=== PATIENT | male | born 1955 | race Two or more races ===

== ENCOUNTER 2020-11-22 13:11 | Outpatient (REF) | payer MEDICARE, OTHER, SELFPAY ==
[2020-11-22 15:05] LABS: PSA,Total (Free>4and<10) 0.48 ng/mL (0.00-4.00)
== END 2020-11-22 13:12 | disposition home or self-care (01) ==
LOC: HO.LAB 13:11
PROVIDERS: PCP Internal Medicine
DX: Z12.5 Encounter for screening for malignant neoplasm of prostate (principal); N32.0 Bladder-neck obstruction
CPT/HCPCS: 36415; 84153

== ENCOUNTER → 2020-12-02 13:26 | Outpatient (BNVA) | payer MEDICARE, OTHER, SELFPAY | PROVIDERS: PCP Internal Medicine; Visit Provider Urology | DX: N32.0 Bladder-neck obstruction (principal); N52.01 Erectile dysfunction due to arterial insufficiency; R39.12 Poor urinary stream | CPT/HCPCS: 99212 ==

== ENCOUNTER 2021-04-21 11:41 | Outpatient (REF) | payer MEDICARE, SELFPAY ==
[2021-04-21 13:33] LABS: Binax Internal Control QC Valid; Binax Now Covid-19 Ag Positive (Negative)
== END 2021-04-21 11:42 | disposition home or self-care (01) ==
LOC: HO.LAB 11:41
PROVIDERS: Visit Provider Internal Medicine
DX: Z20.822 Contact with and (suspected) exposure to COVID-19 (principal)
CPT/HCPCS: 36415; C9803

== ENCOUNTER 2022-04-04 14:43 | Outpatient (AMB) | payer OTHER, SELFPAY, MEDICAID ==
--- OUTSIDE RECORDS SUMMARY | 2022-04-04 14:45 | XMS_ITS | Continuity of Care Document ---
:1955 Author Organization [facility] Adult Address [address] [place] [address]- Care Team Providers Name Role Phone [place] MONTANO, Sarah Primary Care Physician Encounter [facility] Date(s): 07/25/21 - 08/24/21 [facility] Adult [address] [place] [address]- Allergies, Adverse Reactions, Alerts No Known Allergies Immunizations Given and Recorded Vaccine Date Status Refusal Reason pneumococcal 23-valent vaccine1, 2 06/20/21 Given SARS-CoV-2 (COVID-19) mRNA BNT-162b2 vac 02/24/21 Recorde d SARS-CoV-2 (COVID-19) mRNA BNT-162b2 vac 07/09/20 Recorde d SARS-CoV-2 (COVID-19) mRNA BNT-162b2 vac 06/18/20 Recorde d influenza virus vaccine, inactivated 01/05/21 Recorded influenza virus vaccine, inactivated 12/18/18 Recorded influenza virus vaccine, inactivated3 02/14/18 Given influenza virus vaccine, inactivated4 01/10/17 Given influenza virus vaccine, inactivated 03/02/16 Given influenza virus vaccine, inactivated 01/18/15 Recorded influenza virus vaccine, inactivated 01/03/15 Given zoster vaccine, inactivated 09/04/20 Recorded zoster vaccine, inactivated 12/08/19 Recorded pneumococcal 13-valent vaccine5 06/01/20 Given Influenza Virus Vaccine (oldterm)6 02/08/20 Recorded tetanus/diphtheria/pertussis, acel(Tdap) 02/09/15 Given 1Early/Late Reason: Early/Late Reason: Other : .2Result Comment: [facility] [place] [phone] Comment: [02/14/2018] [facility] [phone] Comment: [facility] [phone] Comment: [facility] [phone] Result Comment: PHARMACY Medications amLODIPine 10 mg oral tablet 1 tablet, By Mouth, Daily, # 90 tablet, 1 Refills, [id number], 176.2, cm, 04/21/21 10:57:00 EST, Height Start Date: 05/23/21 Status: OrderedCompression Stockings See Instructions, # 2 each, Refills 3, Tot. Refills 3, Maintenance, Dx: Venous Insufficiency surgical, knee length 20-30 mm Hg, 07/15/21 8:26:00 EDT, Supply Start Date: 07/15/21 Status: Orderedfamotidine 20 mg oral tablet 20 mg, 1, tablet, By Mouth, Daily, # 30 tablet, Refills 5, Tot. Refills 5, Maintenance, 01/07/21 9:33:00 EDT, Route to Pharmacy Electronically, [facility]/pharmacy #[id number], Partial fill upon patient request if the prescription is for a schedule II opioid drug.... Start Date: 01/07/21 Status: OrderedFlax Seed Oil oral capsule 0 Refills, Maintenance, 06/20/21 13:40:00 EST, Partial fill upon patient request if the prescriptionis for a schedule II opioid drug. Start Date: 06/20/21 Status: Orderedgarlic oral tablet 0 Refills, Maintenance, 12/17/18 9:14:05 EDT Start Date: 12/17/18 Status: Orderedibuprofen 600 mg oral tablet 600 mg, 1, tablet, By Mouth, Every 6 hours, with food or milk, # 30 tablet, Refills 0, Tot. Refills 0, Maintenance, 04/04/21 17:59:00 EST, Route to Pharmacy Electronically, [facility]/pharmacy #[id number], Partial fill upon patient request if the prescription is f... Start Date: 04/04/21 Status: Orderedtamsulosin 0.4 mg oral capsule 0.4 mg, 1, capsule, By Mouth, Daily, Refills 0, Maintenance, 12/17/18 9:13:40 EDT Start Date: 12/17/18 Status: OrderedVitamin C By Mouth, Daily, 0 Refills, Maintenance, 06/20/21 13:40:00 EST, Partial fill upon patient request ifthe prescription is for a schedule II opioid drug. 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
--- OUTSIDE RECORDS SUMMARY | 2022-04-04 14:45 | XMS_ITS | Continuity of Care Document ---
:1955 Author Organization [facility] Adult Address [address] [place] [address]- Care Team Providers Name Role Phone Maine MONTANO, Sarah Primary Care Physician [phone] Encounter [facility] Date(s): 04/21/21 - 04/28/21 [facility] Adult [address] [place] [address]- Encounter Diagnosis Rhinorrhea (Discharge Diagnosis) - 04/21/21 Sinus congestion (Discharge Diagnosis) - 04/21/21 Attending Physician: Not on Staff, Attending MD Referring Physician: Maine MONTANO, Sarah Allergies, Adverse Reactions, Alerts No Known Allergies Immunizations Given and Recorded Vaccine Date Status Refusal Reason influenza virus vaccine, inactivated 01/05/21 Recorded influenza virus vaccine, inactivated 12/18/18 Recorded influenza virus vaccine, inactivated1 02/14/18 Given influenza virus vaccine, inactivated2 01/10/17 Given influenza virus vaccine, inactivated 03/02/16 Given influenza virus vaccine, inactivated 01/18/15 Recorded influenza virus vaccine, inactivated 01/03/15 Given zoster vaccine, inactivated 09/04/20 Recorded zoster vaccine, inactivated 12/08/19 Recorded SARS-CoV-2 (COVID-19) mRNA BNT-162b2 vac 07/09/20 Recorde d SARS-CoV-2 (COVID-19) mRNA BNT-162b2 vac 06/18/20 Recorde d pneumococcal 13-valent vaccine3 06/01/20 Given Influenza Virus Vaccine (oldterm)4 02/08/20 Recorded tetanus/diphtheria/pertussis, acel(Tdap) 02/09/15 Given 1Result Comment: [02/14/2018] [facility] [phone] Comment: [facility] [phone] Result Comment: [facility] [phone] Comment: PHARMACY Medications amLODIPine 10 mg oral tablet 1 tablet, By Mouth, Daily, # 90 tablet, 1 Refills, Maintenance, 11/28/20 18:57:00 EDT, [facility]/pharmacy #[id number], 176.2, cm, 06/01/20 11:31:00 EST, Height Start Date: 11/28/20 Status: OrderedCompression Stockings See Instructions, # 6 each, Refills 1, Tot. Refills 1, Maintenance, Dx: Venous Insufficiency surgical, knee length 20-30 mm Hg, 03/03/20 15:24:00 EST, Supply Start Date: 03/03/20 Status: Orderedfamotidine 20 mg oral tablet 20 mg, 1, tablet, By Mouth, Daily, # 30 tablet, Refills 5, Tot. Refills 5, Maintenance, 01/07/21 9:33:00 EDT, Route to Pharmacy Electronically, [facility]/pharmacy #[id number], Partial fill upon patient request if the prescription is for a schedule II opioid drug.... Start Date: 01/07/21 Status: Orderedfinasteride 5 mg oral tablet 1 tablet = 5 mg, By Mouth, Daily, # 30 tablet, 0 Refills, Maintenance, 08/22/17 12:06:04 EDT, Tablet Start Date: 08/22/17 Status: OrderedFlonase 50 mcg/inh nasal spray 1 sprays, Nares, Both, 2 times a day, for 14 days, in each nostril, # 16 Gm, 0 Refills, Acute 05/05/21 14:07:00 EST, 04/21/21 14:07:00 EST, [place], [facility]/pharmacy #[id number], Partial fill upon patient request if the prescription is for a schedule II opioid dr... Start Date: 04/21/21 Stop Date: 05/05/21 Status: Orderedgarlic oral tablet 0 Refills, Maintenance, 12/17/18 9:14:05 EDT Start Date: 12/17/18 Status: Orderedibuprofen 600 mg oral tablet 600 mg, 1, tablet, By Mouth, Every 6 hours, with food or milk, # 30 tablet, Refills 0, Tot. Refills 0, Maintenance, 04/04/21 17:59:00 EST, Route to Pharmacy Electronically, [facility]/pharmacy #[id number], Partial fill upon patient request if the prescription is f... Start Date: 04/04/21 Status: Orderedlevocetirizine 5 mg oral tablet 1 tablet = 5 mg, By Mouth, Daily in PM, for 14 days, # 14 tablet, 0 Refills, Acute 05/05/21 14:07:00EST, 04/21/21 14:07:00 EST, Tablet, [facility]/pharmacy #[id number], Partial fill upon patient request if the prescription is for a schedule II opioid drug., 1 tab... 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
--- OUTSIDE RECORDS SUMMARY | 2022-04-04 14:45 | XMS_ITS | Continuity of Care Document ---
:1955 Author Organization [facility] Adult Address [address] [place] [address]- Care Team Providers Name Role Phone Maine MONTANO, Sarah Primary Care Physician [phone] Encounter [facility] Date(s): 05/25/20 - 06/24/20 [facility] Adult [address] [place] [address]- Allergies, Adverse Reactions, Alerts Substance Reaction Severity Status NKA Active Immunizations Given and Recorded Vaccine Date Status Refusal Reason pneumococcal 13-valent vaccine1 06/01/20 Given Influenza Virus Vaccine (oldterm)2 02/08/20 Recorded influenza virus vaccine, inactivated3 02/14/18 Given influenza virus vaccine, inactivated4 01/10/17 Given influenza virus vaccine, inactivated 03/02/16 Given influenza virus vaccine, inactivated 01/03/15 Given tetanus/diphtheria/pertussis, acel(Tdap) 02/09/15 Given 1Result Comment: [facility] [phone] Comment: [id number] Comment: [02/14/2018] [facility] [phone] Comment: [facility] [phone] Medications amLODIPine 10 mg oral tablet 10 mg, 1, tablet, By Mouth, Daily, # 90 tablet, Refills 1, Tot. Refills 1, Maintenance, 05/26/20 15:18:00 EST, Route to Pharmacy Electronically, [facility]/pharmacy #[id number], 176.2, cm, 04/28/20 13:05:00 EST, Height Start Date: 05/26/20 Stop Date: 11/22/20 Status: OrderedCompression Stockings See Instructions, # 6 each, Refills 1, Tot. Refills 1, Maintenance, Dx: Venous Insufficiency surgical, knee length 20-30 mm Hg, 03/03/20 15:24:00 EST, Supply Start Date: 03/03/20 Status: Orderedfamotidine 20 mg oral tablet 20 mg, 1, tablet, By Mouth, Daily, # 30 tablet, Refills 1, Tot. Refills 1, Maintenance, 06/01/20 12:46:00 EST, Route to Pharmacy Electronically, [facility]/pharmacy #[id number], Partial fill upon patient request ifthe prescription is for a schedule II opioid drug... Start Date: 06/01/20 Status: Orderedfinasteride 5 mg oral tablet 1 tablet = 5 mg, By Mouth, Daily, # 30 tablet, 0 Refills, Maintenance, 08/22/17 12:06:04 EDT, Tablet Start Date: 08/22/17 Status: Orderedgarlic oral tablet 0 Refills, Maintenance, 12/17/18 9:14:05 EDT Start Date: 12/17/18 Status: Orderedtamsulosin 0.4 mg oral capsule 0.4 [...]
--- OUTSIDE RECORDS SUMMARY | 2022-04-04 14:45 | XMS_ITS | Continuity of Care Document ---
:1955 Author Organization [facility] Address [address] [place] [address]- Care Team Providers Name Role Phone Maine MONTANO, Sarah Primary Care Physician [phone] Encounter [facility] Date(s): 03/31/19 - 04/10/19 [facility] [address] [place] [address]- [facility] Attending Physician: King Tellez Admitting Physician: AdmKing lugo Referring Physician: AdmtrKing Allergies, Adverse Reactions, Alerts Substance Reaction Severity Status NKA Active Immunizations Given and Recorded Vaccine Date Status Refusal Reason influenza virus vaccine, inactivated1 02/14/18 Given influenza virus vaccine, inactivated2 01/10/17 Given influenza virus vaccine, inactivated 03/02/16 Given influenza virus vaccine, inactivated 01/03/15 Given tetanus/diphtheria/pertussis, acel(Tdap) 02/09/15 Given 1Result Comment: [02/14/2018] [facility] [phone] Comment: [facility] [phone] Medications amLODIPine 10 mg oral tablet 10 mg, 1, tablet, By Mouth, Daily, # 30 tablet, Refills 11, Tot. Refills 11, Maintenance, 01/07/19 17:32:43 EDT, Route to Pharmacy Electronically, [id number], [facility]/pharmacy #[id number] Start Date: 01/07/19 Status: OrderedCompression Stockings See Instructions, # 2 pair, Maintenance, surgical, knee length 20-30 mm Hg, 11/29/18 14:17:47 EDT, Compound Start Date: 11/29/18 Status: Orderedfinasteride 5 mg oral tablet 1 tablet = 5 mg, By Mouth, Daily, # 30 tablet, 0 Refills, Maintenance, 08/22/17 12:06:04 EDT, Tablet Start Date: 08/22/17 Status: OrderedFlax Seed Oil 0 Refills, Maintenance, 12/17/18 9:13:59 EDT Start Date: 12/17/18 Status: Orderedgarlic oral tablet 0 Refills, Maintenance, [...]
--- OUTSIDE RECORDS SUMMARY | 2022-04-04 14:45 | XMS_ITS | Continuity of Care Document ---
:1955 Author Organization [facility] Adult Address [address] [place] [address]- Care Team Providers Name Role Phone Maine MONTANO, Sarah Primary Care Physician [place] [facility] [place] 05/08/19 - 05/18/19 [facility] Adult [address] [place] [address]- [facility] Attending Physician: King Tellez Admitting Physician: King Tellez Referring Physician: AdmtrKing Allergies, Adverse Reactions, Alerts Substance Reaction Severity Status NKA Active Immunizations Given and Recorded Vaccine Date Status Refusal Reason influenza virus vaccine, inactivated1 02/14/18 Given influenza virus vaccine, inactivated2 01/10/17 Given influenza virus vaccine, inactivated 03/02/16 Given influenza virus vaccine, inactivated 01/03/15 Given tetanus/diphtheria/pertussis, acel(Tdap) 02/09/15 Given 1Result Comment: [02/14/2018] [facility] [phone] Comment: [facility] [phone] Medications amLODIPine 10 mg oral tablet 10 mg, 1, tablet, By Mouth, Daily, # 30 tablet, Refills 11, Tot. Refills 11, Maintenance, 01/07/19 17:32:43 EDT, Route to Pharmacy Electronically, [id number], [facility]/pharmacy #[id number] Start Date: 01/07/19 Status: OrderedCompression Stockings [...]
--- OUTSIDE RECORDS SUMMARY | 2022-04-04 14:45 | XMS_ITS | Continuity of Care Document ---
:1955 Author Organization [facility] Adult Address [address] [place] [address]- Care Team Providers Name Role Phone Maine MONTANO, Sarah Primary Care Physician [phone] [id number] Date(s): 12/08/19 - 01/07/20 [facility] Adult [address] [place] [address]- [facility] Allergies, Adverse Reactions, Alerts Substance Reaction Severity Status NKA Active Immunizations Given and Recorded Vaccine Date Status Refusal Reason influenza virus vaccine, inactivated1 02/14/18 Given influenza virus vaccine, inactivated2 01/10/17 Given influenza virus vaccine, inactivated 03/02/16 Given influenza virus vaccine, inactivated 01/03/15 Given tetanus/diphtheria/pertussis, acel(Tdap) 02/09/15 Given 1Result Comment: [02/14/2018] [facility] [phone] Comment: [facility] [phone] Medications amLODIPine 10 mg oral tablet 10 mg, 1, tablet, By Mouth, Daily, # 90 tablet, Refills 0, Tot. Refills 0, Maintenance, 12/08/19 13:51:00 EDT, Route to Pharmacy Electronically, [facility]/pharmacy #[id number], 176.2, cm, 05/08/19 15:49:00 EST, Height, 104.5, kg, 02/20/18 8:57:00 EST, Dry Weight Start Date: 12/08/19 Status: OrderedCompression Stockings See Instructions, # 2 [...]
--- OUTSIDE RECORDS SUMMARY | 2022-04-04 14:45 | XMS_ITS | Continuity of Care Document ---
:1955 Author Organization [facility] Address [address] [place] [address]- Care Team Providers Name Role Phone Maine MONTANO, [place] Primary Care Physician [id number] Date(s): 01/19/21 - 01/26/21 [facility] [address] [place] [address]- Encounter Diagnosis Right eye symptoms (Discharge Diagnosis) - 01/19/21 Attending Physician: Not on Staff, Attending MD Allergies, Adverse Reactions, Alerts Substance Reaction Severity [...] tetanus/diphtheria/pertussis, acel(Tdap) 02/09/15 Given 1Result Comment: [02/14/2018] [facility] [phone] Comment: [facility] [phone] Result Comment: [facility] [phone] Comment: PHARMACY Medications amLODIPine 10 mg oral tablet 1 tablet, By Mouth, Daily, # 90 tablet, 1 Refills, Maintenance, 11/28/20 18:57:00 EDT, [facility]/pharmacy #[id number], 176.2, cm, 06/01/20 11:31:00 EST, Height [...] EDT, Route to Pharmacy Electronically, [facility]/pharmacy #[id number], Partial fill upon patient request if [...] edema(Confirmed) Diagnosis Diagnosis Type Effective Dates Health Status Clinical In formant Service Right eye Discharge 01/19/21 symptoms Diagnosis Vital Signs Most recent to oldest [Reference Range]: 1 Height 176.2 cm (01/19/21 4:01 PM) Weight 108 kg (01/19/21 4:01 PM) Oxygen Saturation [94-100 %] 98 % (01/19/21 4:01 PM) Pulse Rate [55-90 bpm] 80 bpm (01/19/21 4:01 PM) Body Mass Index [18.5-24.99] 34.79 *>HHI* (01/19/21 4:01 PM) Blood Pressure [90-138/55-84 mm Hg] 118/72 mm Hg (01/19/21 4:01 PM) Mode of Delivery (Oxygen) Room air (01/19/21 4:01 PM) Blood pressure sites Arm, left (01/19/21 4:01 PM) Weight Obtained Via Standing scale (01/19/21 4:01 PM) Social History Social History Type Response Smoking Status Former smoker; Other: quit 1 970; entered on: 02/09/15 Sex
--- OUTSIDE RECORDS SUMMARY | 2022-04-04 14:45 | XMS_ITS | Continuity of Care Document ---
:1955 Author Organization [facility] Adult Address [address] [place] [address]- Care Team Providers Name Role Phone Maine MONTANO, [place] Primary Care Physician Encounter [facility] Date(s): 09/29/21 - 10/29/21 [facility] Adult [address] [place] [address]- Allergies, Adverse Reactions, Alerts No Known Allergies [...] Reason: Early/Late Reason: Other : .2Result Comment: [facility] [phone] Comment: [02/14/2018] [facility] [phone] Comment: [facility] [phone] Comment: [facility] [phone] Result Comment: PHARMACY Medications amLODIPine 10 mg oral tablet 1 tablet, By Mouth, Daily, # 90 tablet, 1 Refills, [facility], 176.2, cm, 04/21/21 10:57:00 EST, Height Start [...] 01/07/21 9:33:00 EDT, Route to Pharmacy Electronically, [facility]/pharmacy #[id number], Partial fill upon patient request if the prescription is for a schedule II opioid drug.... Start Date: 01/07/21 Status: Orderedgarlic oral tablet 0 Refills, Maintenance, 12/17/18 9:14:05 EDT Start Date: 12/17/18 Status: Orderedibuprofen 600 mg oral tablet 600 mg, 1, tablet, By Mouth, Every 6 hours, with food or milk, # 30 tablet, Refills 0, Tot. Refills 0, Maintenance, 04/04/21 17:59:00 EST, Route to Pharmacy Electronically, [facility]/pharmacy #[id number], Partial fill upon patient request if [...]
--- OUTSIDE RECORDS SUMMARY | 2022-04-04 14:45 | XMS_ITS | Continuity of Care Document ---
:1955 Author Organization [facility] Adult Address [address] [place] [address]- Care Team Providers Name Role Phone Maine MONTANO, Sarah Primary Care Physician Encounter [facility] Date(s): 06/01/20 - 06/08/20 [facility] [address] [place] [address]- Encounter Diagnosis Well adult exam (Discharge Diagnosis) - 06/01/20 HTN (hypertension) (Discharge Diagnosis) - 06/01/20 Bladder outlet obstruction (Discharge Diagnosis) - 06/01/20 Obesity (Discharge Diagnosis) - 06/01/20 Varicose veins of right leg with edema (Discharge Diagnosis) - 06/01/20 Screening for AAA (aortic abdominal aneurysm) (Discharge Diagnosis) - 06/01/20 Attending Physician: Sarah Grove MD Allergies, Adverse Reactions, Alerts Substance Reaction Severity Status NKA Active Immunizations Given and Recorded Vaccine Date Status Refusal Reason pneumococcal 13-valent vaccine1 06/01/20 Given Influenza Virus Vaccine (oldterm)2 02/08/20 Recorded influenza virus vaccine, inactivated3 02/14/18 Given influenza virus vaccine, inactivated4 01/10/17 Given influenza virus vaccine, inactivated 03/02/16 Given influenza virus vaccine, inactivated 01/03/15 Given tetanus/diphtheria/pertussis, acel(Tdap) 02/09/15 Given 1Result Comment: [facility] [phone] Comment: [id number] Comment: [02/14/2018] [facility] [phone] Comment: [facility] [phone] Medications amLODIPine 10 mg oral tablet 10 mg, 1, tablet, By Mouth, Daily, # 90 tablet, Refills 1, Tot. Refills 1, Maintenance, 05/26/20 15:18:00 EST, Route to Pharmacy Electronically, [facility]/pharmacy #[id number], 176.2, cm, 04/28/20 13:05:00 EST, Height [...] 06/01/20 12:46:00 EST, [id number] Partial fill upon patient request ifthe prescription [...] Dates Health Clinical Infor mant Status Service Well adult exam Discharge 06/01/20 Diagnosis HTN (hypertension) Discharge 06/01/20 Diagnosis Bladder outlet Discharge 06/01/20 obstruction Diagnosis Obesity Discharge 06/01/20 Diagnosis Varicose veins of Discharge 06/01/20 right leg with Diagnosis edema Screening for AAA Discharge 06/01/20 (aortic abdominal Diagnosis aneurysm) Vital Signs Most recent to oldest [Reference Range]: 1 Height 176.2 cm (06/01/20 11:31 AM) Weight 108.4 kg (06/01/20:31 AM) Oxygen Saturation [94-100 %] 99 % (06/01/20:31 AM) Pulse Rate [55-90 bpm] 90 bpm (06/01/20:31 AM) Body Mass Index [18.5-24.99] 34.92 *>HHI* (06/01/20 11:31 AM) Blood Pressure [90-138/55-84 mm Hg] 138/80 mm Hg (06/01/20 11:31 AM) Respiratory Rate [16-30 br/min] 18 br/min (06/01/20 11:31 AM) Blood pressure sites Arm, left (06/01/20:31 AM) Social History Social History Type Response Smoking Status Former smoker; Other: quit 1 970; entered on: 02/09/15 Sex
--- OUTSIDE RECORDS SUMMARY | 2022-04-04 14:45 | XMS_ITS | Continuity of Care Document ---
:1955 Author Organization [facility] Adult Address [address] [place] [address]- Care Team Providers Name Role Phone Maine MONTANO, Sarah Primary Care Physician [phone] Encounter [facility] Date(s): 06/22/21 - 07/22/21 [facility] Adult [address] [place] [address]- Allergies, Adverse Reactions, Alerts No Known Allergies [...] Reason: Early/Late Reason: Other : .2Result Comment: [facility] [phone] Comment: [02/14/2018] [facility] [phone] Comment: [facility] [phone] Comment: [facility] [phone] Result Comment: PHARMACY Medications amLODIPine 10 mg oral tablet 1 tablet, By Mouth, Daily, # 90 tablet, 1 Refills, [id number], 176.2, cm, 04/21/21 10:57:00 EST, Height Start [...] 01/07/21 9:33:00 EDT, Route to Pharmacy Electronically, [facility]/pharmacy #[id number], Partial fill upon patient request if [...] 04/04/21 17:59:00 EST, Route to Pharmacy Electronically, [facility]/pharmacy #[id number], Partial fill upon patient request if [...]
--- OUTSIDE RECORDS SUMMARY | 2022-04-04 14:45 | XMS_ITS | Continuity of Care Document ---
:1955 Author Organization [facility] Address [address] [place] [address]- Care Team Providers Name Role Phone Maine MONTANO, Sarah Primary Care Physician [phone] Encounter [facility] Date(s): 03/31/19 - 04/07/19 [facility] [address] [place] [address] Attending Physician: Kamlesh Black MD Admitting Physician: Kamlesh Black MD Referring Physician: Sarah Grove MD Allergies, Adverse Reactions, Alerts Substance Reaction Severity Status NKA Active Immunizations Given and Recorded Vaccine Date Status Refusal Reason influenza virus vaccine, inactivated1 02/14/18 Given influenza virus vaccine, inactivated2 01/10/17 Given influenza virus vaccine, inactivated 03/02/16 Given influenza virus vaccine, inactivated 01/03/15 Given tetanus/diphtheria/pertussis, acel(Tdap) 02/09/15 Given 1Result Comment: [02/14/2018] [facility] [phone] Comment: [facility] [phone] Medications amLODIPine 10 mg oral tablet 10 mg, 1, tablet, By Mouth, Daily, # 30 tablet, Refills 11, Tot. Refills 11, Maintenance, 01/07/19 17:32:43 EDT, Route to Pharmacy Electronically, [id number], [facility]/pharmacy #[id number] Start Date: 01/07/19 Status: OrderedCompression Stockings [...] veins of right leg with Active edema(Confirmed) Vital Signs Most recent to oldest [Reference Range]: 1 Height 176.2 cm (03/31/19 10:42 AM) Weight 107.00 kg (03/31/19 10:42 AM) Body Mass Index [18.5-24.99] 34.46 *>HHI* (03/31/19 10:42 AM) Blood Pressure [90-138/55-84 mm Hg] 148/80 mm Hg *H* (03/31/19 10:42 AM) Blood pressure sites Arm, left (03/31/19 10:42 AM) Weight Obtained Via Patient/family stated (03/31/19 10:42 AM) Social History Social History Type Response Smoking Status Former smoker; Other: quit 1 970; entered on: 02/09/15 Sex
--- OUTSIDE RECORDS SUMMARY | 2022-04-04 14:45 | XMS_ITS | Continuity of Care Document ---
:1955 Author Organization [facility] Adult Address [address] [place] [address]- Care Team Providers Name Role Phone Maine MONTANO, Sarah Primary Care Physician [phone] Encounter [facility] Date(s): 02/02/21 - 03/04/21 [facility] Adult [address] [place] [address]- Attending Physician: King Tellez Admitting Physician: King [...] tetanus/diphtheria/pertussis, acel(Tdap) 02/09/15 Given 1Result Comment: [02/14/2018] [facility] [phone] Comment: [facility] [phone] Result Comment: [facility] [phone] Comment: PHARMACY Medications amLODIPine 10 mg oral tablet 1 tablet, By Mouth, Daily, # 90 tablet, 1 Refills, Maintenance, 11/28/20 18:57:00 EDT, [facility]/pharmacy #[id number], 176.2, cm, 06/01/20 11:31:00 EST, Height [...] 01/07/21 9:33:00 EDT, Route to Pharmacy Electronically, [facility]/pharmacy #[id number], Partial fill upon patient request if [...]
--- OUTSIDE RECORDS SUMMARY | 2022-04-04 14:45 | XMS_ITS | Continuity of Care Document ---
:1955 Author Organization [facility] Adult Address [address] [place] [address]- Care Team Providers Name Role Phone Maine MONTAON, Sarah Primary Care Physician [id number] Date(s): 02/02/21 - 02/09/21 [facility] Adult [address] [place] [address]- Attending Physician: Familia Wang NP Referring Physician: Not on Staff, Referring MD Allergies, Adverse Reactions, Alerts Substance Reaction [...] tetanus/diphtheria/pertussis, acel(Tdap) 02/09/15 Given 1Result Comment: [02/14/2018] [facility] [phone] Comment: [facility] [phone] Result Comment: [facility] [phone] Comment: PHARMACY Medications amLODIPine 10 mg oral tablet 1 tablet, By Mouth, Daily, # 90 tablet, 1 Refills, Maintenance, 11/28/20 18:57:00 EDT, [facility]/pharmacy #[id number], 176.2, cm, 06/01/20 11:31:00 EST, Height [...] 01/07/21 9:33:00 EDT, Route to Pharmacy Electronically, [facility]/pharmacy #[id number], Partial fill upon patient request if [...] Most recent to oldest [Reference Range]: 1 2 Height 176.2 cm 176.2 cm (02/02/21 10:52 AM) (02/02/21 10:06 AM) Weight 107 kg (02/02/21 10:06 AM) Oxygen Saturation [94-100 %] 100 % (02/02/21 10:06 AM) Pulse Rate [55-90 bpm] 79 bpm (02/02/21 10:06 AM) Body Mass Index [18.5-24.99] 34.46 *>HHI* (02/02/21 10:06 AM) Blood Pressure [90-138/55-84 mm Hg] 132/80 mm Hg 140/ 78 mm Hg (02/02/21 10:52 AM) *H* (02/02/21 10:06 AM) Mode of Delivery (Oxygen) Room air (02/02/21 10:06 AM) Blood pressure sites Arm, left Arm, left (02/02/21 10:52 AM) (02/02/21 10:06 AM) Weight Obtained Via Standing scale (02/02/21 10:06 AM) Social History Social History Type Response Smoking Status Former smoker; Other: quit 1 970; entered on: 02/09/15 Sex
--- OUTSIDE RECORDS SUMMARY | 2022-04-04 14:45 | XMS_ITS | Continuity of Care Document ---
:1955 Author Organization [facility] Adult Address [address] [place] [address]- Care Team Providers Name Role Phone Maine MONTANO, Lamar Primary Care Physician En[place] [facility] Date(s): 10/19/21 - 11/18/21 [facility] Adult [address] [place] [address]- Attending Physician: King Tellez Admitting Physician: King Tellez Referring Physician: AdmtrKing Allergies, Adverse Reactions, Alerts No Known Allergies [...] Reason: Early/Late Reason: Other : .2Result Comment: [facility] [phone] Comment: [02/14/2018] [facility] [phone] Comment: [facility] [phone] Comment: [facility] [phone] Result Comment: PHARMACY Medications amLODIPine 10 mg oral tablet 1 tablet, By Mouth, Daily, # 90 tablet, 1 Refills, [facility], 175, cm, 10/19/21 9:44:00 EDT, Height Start Date: 11/14/21 Status: OrderedCompression Stockings See Instructions, # 2 each, Refills 3, Tot. Refills 3, Maintenance, Dx: Venous Insufficiency surgical, knee length 20-30 mm Hg, 07/15/21 8:26:00 EDT, Supply Start Date: 07/15/21 Status: Orderedfamotidine 20 mg oral tablet 20 mg, 1, tablet, By Mouth, Daily, # 30 tablet, Refills 5, Tot. Refills 5, Maintenance, 01/07/21 9:33:00 EDT, Route to Pharmacy Electronically, [facility]/pharmacy #[id number], Partial fill upon patient [...] 04/04/21 17:59:00 EST, Route to Pharmacy Electronically, [facility]/pharmacy #[id number], Partial fill upon patient [...]
--- OUTSIDE RECORDS SUMMARY | 2022-04-04 14:45 | XMS_ITS | Continuity of Care Document ---
:1955 Author Organization [facility] Address [address] [place] [address]- Care Team Providers Name Role Phone Maine MONTANO, Sarah Primary Care Physician [place] [facility] [place] 03/31/19 - 04/10/19 [facility] [address] [place] [address]- [facility] Attending Physician: Admbrittney, King Admitting Physician: AdmtrKing Referring Physician: Admtr, Ar8 Allergies, Adverse Reactions, Alerts Substance Reaction Severity Status NKA Active Immunizations Given and Recorded Vaccine Date Status Refusal Reason influenza virus vaccine, inactivated1 02/14/18 Given influenza virus vaccine, inactivated2 01/10/17 Given influenza virus vaccine, inactivated 03/02/16 Given influenza virus vaccine, inactivated 01/03/15 Given tetanus/diphtheria/pertussis, acel(Tdap) 02/09/15 Given 1Result Comment: [02/14/2018] [facility] [phone] Comment: [facility] [phone] Medications amLODIPine 10 mg oral tablet 10 mg, 1, tablet, By Mouth, Daily, # 30 tablet, Refills 11, Tot. Refills 11, Maintenance, 01/07/19 17:32:43 EDT, Route to Pharmacy Electronically, [id number], [facility]/pharmacy #[id number] Start Date: 01/07/19 Status: OrderedCompression Stockings [...]
--- OUTSIDE RECORDS SUMMARY | 2022-04-04 14:45 | XMS_ITS | Continuity of Care Document ---
:1955 Author Organization [facility] Adult Address [address] [place] [address]- Care Team Providers Name Role Phone Maine MONTANO, [place] Primary Care Physician En[place] [facility] Date(s): 04/22/21 - 05/22/21 [facility] Adult [address] [place], [place] [address] Allergies, Adverse Reactions, Alerts No Known Allergies [...] tetanus/diphtheria/pertussis, acel(Tdap) 02/09/15 Given 1Result Comment: [02/14/2018] [facility] [phone] Comment: [facility] [phone] Result Comment: [facility] [phone] Comment: PHARMACY Medications amLODIPine 10 mg oral tablet 1 tablet, By Mouth, Daily, # 90 tablet, 1 Refills, Maintenance, 11/28/20 18:57:00 EDT, [id number], 176.2, cm, 06/01/20 11:31:00 EST, Height [...] 01/07/21 9:33:00 EDT, Route to Pharmacy Electronically, [facility]/pharmacy #[id number], Partial fill upon patient request [...] 04/04/21 17:59:00 EST, Route to Pharmacy Electronically, [facility]/pharmacy #[id number], Partial fill upon patient request [...]
--- OUTSIDE RECORDS SUMMARY | 2022-04-04 14:45 | XMS_ITS | Continuity of Care Document ---
:1955 Author Organization [facility] Adult Address [address] [place] [address]- Care Team Providers Name Role Phone Maine MONTANO, Sarah Primary Care Physician En[place] [facility] Date(s): 06/21/21 - 07/21/21 [facility] Adult [address] [place] [address]- Allergies, Adverse Reactions, Alerts No Known Allergies [...] Reason: Early/Late Reason: Other : .2Result Comment: [facility] [phone] Comment: [02/14/2018] [facility] [phone] Comment: [facility] [phone] Comment: [facility] [phone] Result Comment: PHARMACY Medications amLODIPine 10 mg oral tablet 1 tablet, By Mouth, Daily, # 90 tablet, 1 Refills, [facility], 176.2, cm, 04/21/21 10:57:00 EST, Height Start [...] 01/07/21 9:33:00 EDT, Route to Pharmacy Electronically, [facility]/pharmacy #[id number], Partial fill upon patient request if [...] 04/04/21 17:59:00 EST, Route to Pharmacy Electronically, [facility]/pharmacy #[id number], Partial fill upon patient request if [...]
--- OUTSIDE RECORDS SUMMARY | 2022-04-04 14:45 | XMS_ITS | Continuity of Care Document ---
:1955 Author Organization [facility] Adult Address [address] [place] [address]- Care Team Providers Name Role Phone Sarah Grove MD Primary Care Physician [phone] Encounter [facility] Date(s): 06/20/21 - 06/27/[address] [address]- Encounter Diagnosis Well adult exam (Discharge Diagnosis) - 06/20/21 HTN (hypertension) (Discharge Diagnosis) - 06/20/21 Obesity (Discharge Diagnosis) - 06/20/21 Cataract, bilateral (Discharge Diagnosis) - 06/20/21 Prostate cancer screening (Discharge Diagnosis) - 06/20/21 Bladder outlet obstruction (Discharge Diagnosis) - 06/20/21 Attending Physician: Sarah Grove MD Allergies, Adverse Reactions, Alerts No Known Allergies [...] Reason: Early/Late Reason: Other : .2Result Comment: [facility] [phone] Comment: [02/14/2018] [facility] [phone] Comment: [facility] [phone] Comment: [facility] [phone] Result Comment: PHARMACY Medications amLODIPine 10 mg oral tablet 1 tablet, By Mouth, Daily, # 90 tablet, 1 Refills, [facility], 176.2, cm, 04/21/21 10:57:00 EST, Height Start Date: 05/23/21 Status: OrderedCompression Stockings See Instructions, # 6 each, Refills 1, Tot. Refills 1, Maintenance, Dx: Venous Insufficiency surgical, knee length 20-30 mm Hg, 03/03/20 15:24:00 EST, Supply Start Date: 03/03/20 Status: Orderedfamotidine 20 mg oral tablet 20 mg, 1, tablet, By Mouth, Daily, # 30 tablet, Refills 5, Tot. Refills 5, Maintenance, 01/07/21 9:33:00 EDT, Route to Pharmacy Electronically, [facility]/pharmacy #[id number], Partial fill upon [...] 04/04/21 17:59:00 EST, Route to Pharmacy Electronically, [facility]/pharmacy #[id number], Partial fill upon [...] mant Status Service Well adult exam Discharge 06/20/21 Diagnosis HTN (hypertension) Discharge 06/20/21 Diagnosis Obesity Discharge 06/20/21 Diagnosis Cataract, Discharge 06/20/21 bilateral Diagnosis Prostate cancer Discharge 06/20/21 screening Diagnosis Bladder outlet Discharge 06/20/21 obstruction Diagnosis Procedures Procedure Date Related Diagnosis Body Site Status Detachment of retina of right eye Completed Vital Signs Most recent to oldest [Reference Range]: 1 Height 175 cm (06/20/21 1:14 PM) Weight 106.8 kg (06/20/21 1:14 PM) Oxygen Saturation [94-100 %] 99 % (06/20/21 1:14 PM) Pulse Rate [55-90 bpm] 76 bpm (06/20/21 1:14 PM) Body Mass Index [18.5-24.99] 34.87 *>HHI* (06/20/21 1:14 PM) Blood Pressure [90-138/55-84 mm Hg] 134/84 mm Hg (06/20/21 1:14 PM) Temperature [96.8-100.4 DegF] 98.9 DegF (06/20/21 1:14 PM) Mode of Delivery (Oxygen) Room air (06/20/21 1:14 PM) Blood pressure sites Arm, left (06/20/21 1:14 PM) Temperature Route Oral (06/20/21 1:14 PM) Social History Social History Type Response Smoking Status Former smoker; Other: quit 1 970; entered on: 02/09/15 Sex
--- OUTSIDE RECORDS SUMMARY | 2022-04-04 14:45 | XMS_ITS | Continuity of Care Document ---
:1955 Author Organization [facility] Adult Address [address] [place] [address]- Care Team Providers Name Role Phone Maine MONTANO, Sarah Primary Care Physician Encounter [facility] Date(s): 10/19/21 - 10/26/21 [facility] Adult [address] [place] [address]- Encounter Diagnosis Preop examination (Discharge Diagnosis) - 10/19/21 HTN (hypertension) (Discharge Diagnosis) - 10/19/21 Obese class I (Discharge Diagnosis) - 10/19/21 Attending Physician: Suzie MCDONALD, Cassi Vo Referring Physician: Felicia MONTANO, Salvatore Patel Allergies, Adverse Reactions, Alerts No Known Allergies [...] Reason: Early/Late Reason: Other : .2Result Comment: [facility] [phone] Comment: [02/14/2018] [facility] [phone] Comment: [facility] [phone] Comment: [facility] [phone] Result Comment: PHARMACY Medications amLODIPine 10 mg oral tablet 1 tablet, By Mouth, Daily, # 90 tablet, 1 Refills, [facility], 176.2, cm, 04/21/21 10:57:00 EST, Height Start [...] 01/07/21 9:33:00 EDT, Route to Pharmacy Electronically, [facility]/pharmacy #[id number], Partial fill upon patient request if [...] 04/04/21 17:59:00 EST, Route to Pharmacy Electronically, [facility]/pharmacy #[id number], Partial fill upon patient request if [...] Dates Health Clinical Infor mant Status Service Preop examination Discharge 10/19/21 Diagnosis HTN (hypertension) Discharge 10/19/21 Diagnosis Obese class I Discharge 10/19/21 Diagnosis Vital Signs Most recent to oldest [Reference 1 2 3 Range]: Height 175 cm 175 cm 175 cm (10/19/21 9:44 AM) (10/19/21 9:22 AM) (10/19/21 9:11 A M) Weight 106.6 kg (10/19/21 9:11 AM) Oxygen Saturation [94-100 %] 99 % (10/19/21 9:11 AM) Pulse Rate [55-90 bpm] 77 bpm (10/19/21 9:11 AM) Body Mass Index [18.5-24.99] 34.81 *>HHI* (10/19/21 9:11 AM) Blood Pressure [90-138/55-84 mm 144/86 mm Hg 145/78 mm Hg 142/77 mm Hg Hg] *H* *H* *H* (10/19/21 9:44 AM) (10/19/21 9:22 AM) (10/19/21 9:11 A M) Temperature [96.8-100.4 DegF] 97.7 DegF (10/19/21 9:11 AM) Mode of Delivery (Oxygen) Room air (10/19/21 9:11 AM) Blood pressure sites Arm, left Arm, left Arm, left (10/19/21 9:44 AM) (10/19/21 9:22 AM) (10/19/21 9:11 A M) Temperature Route Temporal (10/19/21 9:11 AM) Weight Obtained Via Standing scale (10/19/21 9:11 AM) Social History Social History Type Response Smoking Status Former smoker; Other: quit 1 970; entered on: 02/09/15 Sex
--- OUTSIDE RECORDS SUMMARY | 2022-04-04 14:45 | XMS_ITS | Continuity of Care Document ---
:1955 Author Organization [facility] Address [address] [place] [address]- Care Team Providers Name Role Phone Maine MONTANO, Sarah Primary Care Physician [phone] Encounter [facility] Date(s): 04/04/21 - 04/04/[address] [address]- Encounter Diagnosis Thoracic back sprain (Final) - 04/04/21 Discharge Disposition: A-D/C Home Attending Physician: Michelet Bassett DO Admitting Physician: Michelet Bassett DO Referring Physician: Not on Staff, Referring MD [...] tetanus/diphtheria/pertussis, acel(Tdap) 02/09/15 Given 1Result Comment: [02/14/2018] [facility][note 3] [phone] Comment: [facility][note 3] [phone] Result Comment: [facility][note 3] [phone] Comment: PHARMACY Medications amLODIPine 10 mg oral tablet 1 tablet, By Mouth, Daily, # 90 tablet, 1 Refills, Maintenance, 11/28/20 18:57:00 EDT, [facility]/pharmacy #[id number], 176.2, cm, 06/01/20 11:31:00 [...] 01/07/21 9:33:00 EDT, Route to Pharmacy Electronically, [facility]/pharmacy #[id number], Partial fill upon [...] 04/04/21 17:59:00 EST, Route to Pharmacy Electronically, [facility]/pharmacy #[id number], Partial fill upon [...] edema(Confirmed) Vital Signs Most recent to oldest 1 2 3 [Reference Range]: Oxygen Saturation [94-100 %] 98 % 98 % 98 % (04/04/21 6:32 PM) (04/04/21 4:41 PM) (04/04/21 2:38 PM) Pulse Rate [55-90 bpm] 93 bpm 91 bpm 91 bpm *H* *H* *H* (04/04/21 6:32 PM) (04/04/21 4:41 PM) (04/04/21 2:38 PM) Blood Pressure [90-138/55-84 140/94 mm Hg 132/89 mm Hg 132 /81 mm Hg mm Hg] *H* (04/04/21 4:41 PM) (04/04/21 2:3 8 PM) (04/04/21 6:32 PM) Respiratory Rate [16-30 19 br/min 19 br/min 16 br/mi n br/min] (04/04/21 6:32 PM) (04/04/21 4:41 PM) (04/04/21 2:38 PM) Temperature [96.8-100.4 97.8 DegF 98.9 DegF 99.0 Deg F DegF] (04/04/21 6:32 PM) (04/04/21 4:41 PM) (04/04/21 2:38 PM) Mode of Delivery (Oxygen) Room air Room air Room a ir (04/04/21 6:32 PM) (04/04/21 4:41 PM) (04/04/21 2:38 PM) Blood pressure sites Arm, left Arm, left (04/04/21 4:41 PM) (04/04/21 2:38 PM) Temperature Route Oral Oral Oral (04/04/21 6:32 PM) (04/04/21 4:41 PM) (04/04/21 2:38 PM) Social History Social History Type Response Smoking Status Former smoker; Other: quit 1 970; entered on: 02/09/15 Sex
--- OUTSIDE RECORDS SUMMARY | 2022-04-04 14:45 | XMS_ITS | Continuity of Care Document ---
:1955 Author Organization [facility] Adult Address [address] [place] [address]- Care Team Providers Name Role Phone Maine MONTANO, [place] Primary Care Physician [phone] [place] [facility] [place] 04/21/21 - 05/21/21 [facility] Adult [address] [place] [address]- Attending Physician: King Tellez Admitting Physician: AdmKing lugo Referring Physician: Admtr, Ar8 Allergies, Adverse Reactions, Alerts No Known Allergies [...] tetanus/diphtheria/pertussis, acel(Tdap) 02/09/15 Given 1Result Comment: [02/14/2018] [facility] [phone] Comment: [facility] [phone] Result Comment: [facility] [phone] Comment: PHARMACY Medications amLODIPine 10 mg oral tablet 1 tablet, By Mouth, Daily, # 90 tablet, 1 Refills, Maintenance, 11/28/20 18:57:00 EDT, [facility]/pharmacy #0693, 176.2, cm, 06/01/20 11:31:00 EST, Height [...] 01/07/21 9:33:00 EDT, Route to Pharmacy Electronically, [facility]/pharmacy #[id number], Partial fill upon patient request if [...] 04/04/21 17:59:00 EST, Route to Pharmacy Electronically, [facility]/pharmacy #[id number], Partial fill upon patient request if [...]
--- OUTSIDE RECORDS SUMMARY | 2022-04-04 14:45 | XMS_ITS | Continuity of Care Document ---
:1955 Author Organization [facility] Adult Address [address] [place] [address]- Care Team Providers Name Role Phone Maine MONTANO, [place] Primary Care Physician Encounter [facility] Date(s): 12/07/21 - 01/06/22 [facility] Adult [address] [place] [address]- Allergies, Adverse Reactions, Alerts No Known Allergies [...] Reason: Early/Late Reason: Other : .2Result Comment: [facility] [phone] Comment: [02/14/2018] [facility] [phone] Comment: [facility] [phone] Comment: [facility] [phone] Result Comment: PHARMACY Medications amLODIPine 10 mg oral tablet 1 tablet, By Mouth, Daily, # 90 tablet, 1 Refills, [facility], 175, cm, 10/19/21 9:44:00 EDT, Height Start [...] 01/07/21 9:33:00 EDT, Route to Pharmacy Electronically, [facility]/pharmacy #[id number], Partial fill upon patient request [...] 04/04/21 17:59:00 EST, Route to Pharmacy Electronically, [facility]/pharmacy #[id number], Partial fill upon patient request [...] quit 1 970; entered on: 02/09/15 Sex Care Team PersonnelName: Maine MONTANO, Sarah Address: [address] [place] [address] [address] [place], [place] [address]
--- OUTSIDE RECORDS SUMMARY | 2022-04-04 14:45 | XMS_ITS | Continuity of Care Document ---
:1955 Author Organization [facility] Address [address] [place] [address]- Care Team Providers Name Role Phone Maine MONTANO, Sarah Primary Care Physician [place] [facility] [place] Date(s): 06/08/20 - 07/25/[address] [address] Attending Physician: Sarah Grove MD Admitting Physician: Sarah Grove MD Referring Physician: Sarah Grove MD Allergies, [...] Given tetanus/diphtheria/pertussis, acel(Tdap) 02/09/15 Given 1Result Comment: [facility] [phone] Comment: [id number] Comment: [02/14/2018] [facility] [phone] Comment: [facility] [phone] Medications amLODIPine 10 mg oral tablet 10 mg, 1, tablet, By Mouth, Daily, # 90 tablet, Refills 1, Tot. Refills 1, Maintenance, 05/26/20 15:18:00 EST, Route to Pharmacy Electronically, [facility]/pharmacy #[id number], 176.2, cm, 04/28/20 13:05:00 EST, Height [...] 06/01/20 12:46:00 EST, Route to Pharmacy Electronically, [facility]/pharmacy #[id number], Partial fill upon patient request ifthe prescription [...]
--- OUTSIDE RECORDS SUMMARY | 2022-04-04 14:45 | XMS_ITS | Continuity of Care Document ---
:1955 Author Organization [facility] Adult Address [address] [place] [address]- Care Team Providers Name Role Phone [place] MONTANO, Sarah Primary Care Physician Encounter [facility] [place] Date(s): 07/25/21 - 08/24/21 [facility] Adult [address] [place] [address]- Allergies, Adverse Reactions, Alerts No Known Allergies [...] Reason: Early/Late Reason: Other : .2Result Comment: [facility] [phone] Comment: [02/14/2018] [facility] [phone] Comment: [facility] [phone] Comment: [facility] [phone] Result Comment: PHARMACY Medications amLODIPine 10 mg oral tablet 1 tablet, By Mouth, Daily, # 90 tablet, 1 Refills, [id number], 176.2, cm, 04/21/21 10:57:00 EST, Height Start [...] 01/07/21 9:33:00 EDT, Route to Pharmacy Electronically, [facility]/pharmacy #[id number], Partial fill upon patient request if [...] 04/04/21 17:59:00 EST, Route to Pharmacy Electronically, [facility]/pharmacy #[id number], Partial fill upon patient request if [...]
--- OUTSIDE RECORDS SUMMARY | 2022-04-04 14:45 | XMS_ITS | Continuity of Care Document ---
:1955 Author Organization [facility] Adult Address [address] [place] [address]- Care Team Providers Name Role Phone [place] MONTANO, Sarah Primary Care Physician [place] [facility] [place] 08/24/21 [facility] Adult [address] [place] [address]- Allergies, Adverse Reactions, Alerts No Known Allergies [...] Early/Late Reason: Other : .2Result Comment: [facility] [phone] Comment: [02/14/2018] [facility] [phone] Comment: [facility] [phone] Comment: [facility] [phone] Result Comment: PHARMACY Medications amLODIPine 10 mg oral tablet 1 tablet, By Mouth, Daily, # 90 tablet, 1 Refills, [facility] [id number], 176.2, cm, 04/21/21 10:57:00 EST, Height Start [...] 01/07/21 9:33:00 EDT, Route to Pharmacy Electronically, [facility]/pharmacy #[id number], Partial fill upon patient request if [...] 04/04/21 17:59:00 EST, Route to Pharmacy Electronically, [facility]/pharmacy #[id number], Partial fill upon patient request if [...]
--- OUTSIDE RECORDS SUMMARY | 2022-04-04 14:46 | XMS_ITS | Continuity of Care Document ---
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 (Discharge Diagnosis) - 04/28/20 Prostate cancer screening (Discharge Diagnosis) - 04/28/20 Screening cholesterol level (Discharge Diagnosis) - 04/28/20 Attending Physician: [place] MONTANO, Sarah Allergies, Adverse Reactions, Alerts Substance Reaction Severity Status NKA Active Immunizations Given and Recorded Vaccine Date Status Refusal Reason Influenza Virus Vaccine (oldterm)1 02/08/20 Recorded influenza virus vaccine, inactivated2 02/14/18 Given influenza virus vaccine, inactivated3 01/10/17 Given influenza virus vaccine, inactivated 03/02/16 Given influenza virus vaccine, inactivated 01/03/15 Given tetanus/diphtheria/pertussis, acel(Tdap) 02/09/15 Given 1Result Comment: [id number] Comment: [02/14/2018] [facility] [phone] Comment: [facility] [phone] Medications amLODIPine 10 mg oral tablet 10 mg, 1, tablet, By Mouth, Daily, # 90 tablet, Refills 0, Tot. Refills 0, Maintenance, 02/29/20 14:28:00 EST, Route to Pharmacy Electronically, [facility]/pharmacy #[id number], 176.2, cm, 05/08/19 15:49:00 EST, Height Start Date: 02/29/20 Status: OrderedCompression Stockings See Instructions, # 6 each, Refills 1, Tot. Refills 1, Maintenance, Dx: Venous Insufficiency surgical, knee length 20-30 mm Hg, 03/03/20 15:24:00 EST, Supply Start Date: 03/03/20 Status: Orderedfinasteride 5 mg oral tablet 1 [...] Dates Health Clinical Infor mant Status Service HTN (hypertension) Discharge 04/28/20 Diagnosis Bladder outlet Discharge 04/28/20 obstruction Diagnosis Obesity Discharge 04/28/20 Diagnosis Varicose veins of Discharge 04/28/20 right leg with Diagnosis edema Prostate cancer Discharge 04/28/20 screening Diagnosis Screening Discharge 04/28/20 cholesterol level Diagnosis Vital Signs Most recent to oldest [Reference Range]: 1 2 Height 176.2 cm 176.2 cm (04/28/20 1:05 PM) (04/28/20 11:40 AM) Blood Pressure [90-138/55-84 mm Hg] 119/81 mm Hg (04/28/20 11:40 AM) Social History Social History Type Response Smoking Status Former smoker; Other: quit 1 970; entered on: 02/09/15 Sex
--- OUTSIDE RECORDS SUMMARY | 2022-04-04 14:46 | XMS_ITS | Continuity of Care Document ---
:1955 Author Organization [facility] Adult Address [address] [place] [address]- Care Team Providers Name Role Phone [place] MONTANO, [place] Primary Care Physician Encounter [facility] [place] Date(s): 05/08/19 - 05/15/19 [facility] Adult [address] [place] [address]- [facility] Encounter Diagnosis Bilateral hydrocele (Discharge Diagnosis) - 05/08/19 Attending Physician: Gamaliel MONTANO, [facility] Allergies, Adverse Reactions, Alerts Substance Reaction Severity Status NKA Active Immunizations Given and Recorded Vaccine Date Status Refusal Reason influenza virus vaccine, inactivated1 02/14/18 Given influenza virus vaccine, inactivated2 01/10/17 Given influenza virus vaccine, inactivated 03/02/16 Given influenza virus vaccine, inactivated 01/03/15 Given tetanus/diphtheria/pertussis, acel(Tdap) 02/09/15 Given 1Result Comment: [02/14/2018] [facility] [phone] Comment: [facility] [phone] Medications amLODIPine 10 mg oral tablet 10 mg, 1, tablet, By Mouth, Daily, # 30 tablet, Refills 11, Tot. Refills 11, Maintenance, 01/07/19 17:32:43 EDT, Route to Pharmacy Electronically, [id number], [facility]/pharmacy #[id number] Start Date: 01/07/19 Status: OrderedCompression [...] Dates Health Status Clinical In formant Service Bilateral Discharge 05/08/19 hydrocele Diagnosis Vital Signs Most recent to oldest [Reference Range]: 1 Height 176.2 cm (05/08/19 3:49 PM) Weight 107.2 kg (05/08/19 3:49 PM) Oxygen Saturation [94-100 %] 97 % (05/08/19 3:49 PM) Pulse Rate [55-90 bpm] 65 bpm (05/08/19 3:49 PM) Body Mass Index [18.5-24.99] 34.53 *>HHI* (05/08/19 3:49 PM) Blood Pressure [90-138/55-84 mm Hg] 142/84 mm Hg *H* (05/08/19 3:49 PM) Temperature [96.8-100.4 DegF] 97.9 DegF (05/08/19 3:49 PM) Mode of Delivery (Oxygen) Room air (05/08/19 3:49 PM) Blood pressure sites Arm, left (05/08/19 3:49 PM) Temperature Route Oral (05/08/19 3:49 PM) Weight Obtained Via Standing scale (05/08/19 3:49 PM) Social History Social History Type Response Smoking Status Former smoker; Other: quit 1 970; entered on: 02/09/15 Sex
--- OUTSIDE RECORDS SUMMARY | 2022-04-04 14:46 | XMS_ITS | Continuity of Care Document ---
:1955 Author Organization [facility] Adult Address [address] [place] [address]- Care Team Providers Name Role Phone [place] MONTANO, Sarah Primary Care Physician Encounter [facility] [place] Date(s): 06/22/21 - 07/22/21 [facility] Adult [address] [place] [address]- Allergies, Adverse Reactions, Alerts No Known Allergies [...] Reason: Early/Late Reason: Other : .2Result Comment: [facility] [phone] Comment: [02/14/2018] [facility] [phone] Comment: [facility] [phone] Comment: [facility] [phone] Result Comment: PHARMACY Medications amLODIPine 10 mg oral tablet 1 tablet, By Mouth, Daily, # 90 tablet, 1 Refills, [facility] [id number], 176.2, cm, 04/21/21 10:57:00 EST, Height Start [...] 01/07/21 9:33:00 EDT, Route to Pharmacy Electronically, [facility]/pharmacy #[id number], Partial fill upon patient request if [...] 04/04/21 17:59:00 EST, Route to Pharmacy Electronically, [facility]/pharmacy #[id number], Partial fill upon patient request if [...]
--- OUTSIDE RECORDS SUMMARY | 2022-04-04 14:46 | XMS_ITS | Continuity of Care Document ---
:1955 Author Organization [facility] Adult Address [address] [place] [address]- Care Team Providers Name Role Phone [place] MONTANO, Sarah Primary Care Physician [place] [facility] [place](s): 01/31/21 - 03/02/21 [facility] Adult [address] [place] [address]- Allergies, Adverse Reactions, Alerts Substance Reaction Severity [...] acel(Tdap) 02/09/15 Given 1Result Comment: [02/14/2018] [facility] [phone] Comment: [facility] [phone] Result Comment: [facility] [phone] Comment: PHARMACY Medications amLODIPine 10 mg oral tablet 1 tablet, By Mouth, Daily, # 90 tablet, 1 Refills, Maintenance, 11/28/20 18:57:00 EDT, [facility]/pharmacy #[id number], 176.2, cm, 06/01/20 11:31:00 EST, Height [...] 01/07/21 9:33:00 EDT, Route to Pharmacy Electronically, [facility]/pharmacy #[id number], Partial fill upon patient request if [...]
--- OUTSIDE RECORDS SUMMARY | 2022-04-04 14:46 | XMS_ITS | Continuity of Care Document ---
:1955 Author Organization [facility] Adult Address [address] [place] [address]- Care Team Providers Name Role Phone [place] MONTANO, Sarah Primary Care Physician [place] [facility] [place](s): 06/08/20 - 07/08/20 [facility] Adult [address] [place] [address]- Allergies, Adverse Reactions, Alerts Substance Reaction Severity Status NKA Active Immunizations Given and Recorded Vaccine Date Status Refusal Reason pneumococcal 13-valent vaccine1 06/01/20 Given Influenza Virus Vaccine (oldterm)2 02/08/20 Recorded influenza virus vaccine, inactivated3 02/14/18 Given influenza virus vaccine, inactivated4 01/10/17 Given influenza virus vaccine, inactivated 03/02/16 Given influenza virus vaccine, inactivated 01/03/15 Given tetanus/diphtheria/pertussis, acel(Tdap) 02/09/15 Given 1Result Comment: [facility] [phone] Comment: [id number] Comment: [02/14/2018] [facility] [phone] Comment: [facility] [phone] Medications amLODIPine 10 mg oral tablet 10 mg, 1, tablet, By Mouth, Daily, # 90 tablet, Refills 1, Tot. Refills 1, Maintenance, 05/26/20 15:18:00 EST, Route to Pharmacy Electronically, [facility]/pharmacy #[id number], 176.2, cm, 04/28/20 13:05:00 EST, [...] 06/01/20 12:46:00 EST, Route to Pharmacy Electronically, [facility]/pharmacy #[id number], Partial fill upon patient request ifthe prescription [...]
--- NOTE | 2022-04-04 14:52 | A.OFFVIS_ITS ---
Intake Intake Visit Reasons: 12m with pvr Intake Note: Patient is present for PVR Follow Up Urology Medication: Sildenafil, Tamsulosin Blood Thinner: None Post Void Residual: 8ml Car Builder Required: No Allergies No Known Allergies [No Known Allergies*] Allergy (Unverified 01/01/20 15:24) Medication List - Last Reconciled 04/04/22 by Michele Nova MD sildenafil 100 mg PO DAILY PRN 30 days tamsulosin 0.4 mg PO BEDTIME 90 days HPI HPI Comments History of Present Illness Details Tim MCCOY is a very pleasant male. He is a patient of Dr Matthews. He is seen for the following urologic conditions. - LUTS - erectile dysfunction Continued effective bladder emptying PVR 10 cc Continue good response to on demand sildenafil 12 month follow-up Neurogenic Bladder:? They are here for ?further management for incomplete emptying neurogenic bladder ?- better with medications ?- small stricture on cysto ?- bilateral large hydroceles - offered surgery PSA 12/04 0.5 ? Urinary retention initially found?after ER visit for spontaneous retention - 08/15/17 - prior hx of weak stream, nocturia progressive - trial of finasteride but stopped due to side effects ? Current management?- alpha blockers ? Therapeutic plan?continue medications Erectile dysfunction Responsive to sildenafil PFSH Medical History Bladder outlet obstruction Erectile dysfunction due to arterial insufficiency Weak urinary stream Surgical History H/O shoulder replacement Review of Systems Const Denies chills and Denies fever(s) Card Reports no additional complaints and Denies syncope Resp Denies cough GI Denies abdominal pain and Denies heartburn Reports as per HPI and Denies change in libido Neuro Denies syncope Psych Denies change in libido Endo Denies change in libido Physical Exam Const General: cooperative, healthy appearing, comfortable and no acute distress Orientation/consciousness: patient oriented x3 HEENT Face and sinus: Yes normal facial exam Mouth: moist mucous membranes Neck Neck: Yes normal visual inspection, Yes full ROM and Yes trachea midline Chest Chest palpation & inspection: normal inspection of the chest Resp Effort & Inspection: normal respiratory effort, able to speak in complete sentences and no respiratory distress GI Inspection: Yes normal to inspection Back/Spine/Pelvis Cervical Spine: normal cervical lordosis Thoracic/Lumbar Spine: thoracic and lumbar spine normal to inspection Skin General skin exam: no rashes or lesions noted Neuro General: patient oriented x3, gait normal, tone normal and moves all extremities Extrem General: Yes normal to inspection and Yes capillary refill normal Office Procedures Post Void Residual Post Residual Void Post Void Residual (PVR): 8 [id number] Void Residual by ultrasound Assessment & Plan Assessment & Plan (1) Erectile dysfunction due to arterial insufficiency: Code(s): N52.01 - Erectile dysfunction due to arterial insufficiency (2) Bladder outlet obstruction: Code(s): N32.0 - Bladder-neck obstruction Plan 12 month follow-up Orders: Orders Prostate Specific Antigen 12 Months N32.0 - Bladder-neck obstruction AMB Post Void Residual by ultrasound 04/04/22 R39.12 - Poor urinary stream Patient Instructions: Imaging studies, laboratory and physical exam results were discussed and reviewed in detail. No major barriers to patient understanding were identified. An opportunity to ask questions regarding the treatment plan was provided. All questions were answered. The patient expressed understanding and agreement with the above treatment plan. The patient is aware they should contact our office by phone for worsening of their current condition or the appearance of new urologic symptoms. Compliance is encouraged with any medications and followup testing that is ordered. It is a privilege to participate in the urologic care of your patient. If you have any questions or concerns regarding treatment for the above conditions, or other urologic issues, please do not hesitate to contact me. The office telephone contact is [phone]. This note is constructed using voice recognition software. While every effort has been made to ensure accuracy home manager errors may have been included. Yours sincerely, Dr Michele Nova MD, [facility] - Urology Providers of Expert, Compassionate Care for the Genitourinary System Coding Level of Care Code Est Pt Level 4 (46999) Diagnoses Erectile dysfunction due to arterial insufficiency N52.01 Bladder outlet obstruction N32.0 CPT Codes Post Residual Void - PVR CPT Code: 95447-Ntro Void Residual by ultrasound ([id number])
== END 2022-04-04 15:23 | disposition home or self-care (01) ==
LOC: HO.HUSH 14:43
PROVIDERS: PCP Internal Medicine; Visit Provider Urology
DX: N52.01 Erectile dysfunction due to arterial insufficiency (principal); N32.0 Bladder-neck obstruction
CPT/HCPCS: 99214

== ENCOUNTER → 2022-04-04 14:43 | Outpatient (BNVA) | payer MEDICARE, OTHER, SELFPAY | PROVIDERS: PCP Internal Medicine; Visit Provider Urology | DX: N52.01 Erectile dysfunction due to arterial insufficiency (principal); N32.0 Bladder-neck obstruction | CPT/HCPCS: 51798; 99212 ==

== ENCOUNTER 2023-03-13 13:43 | Emergency (ER) | payer OTHER, SELFPAY ==
--- NOTE | ~2023-03-13 | XR_ITS ---
EXAMINATION: XR RIBS, RIGHT CLINICAL INFORMATION: Right-sided rib pain. COMPARISON: None available. TECHNIQUE: Frontal view of chest 3 views of the right ribs were obtained. FINDINGS: Lungs are clear. No pulmonary vascular congestion. There is no pleural effusion. The heart size is normal. The cardiac and mediastinal contours are normal. There are calcifications of the thoracic aorta. There are multilevel degenerative changes of dorsal spine. Status post reverse right shoulder replacement There is a BB placed over the lower right ribs.. Ribs are intact. No fractures are identified. XR/XR ribs RT min 3V w CXR1V IMPRESSION: 1. No acute abnormality of the chest. 2. No acute osseous abnormality of the right ribs.
--- NOTE | ~2023-03-13 | CT_ITS ---
EXAMINATION: CT HEAD WITHOUT CONTRAST CT CERVICAL SPINE WITHOUT CONTRAST CT FACIAL BONES WITHOUT CONTRAST CLINICAL INFORMATION: Fall. Head strike. COMPARISON: None available. TECHNIQUE: Contiguous axial imaging was performed through the head, facial bones and cervical spine without intravenous administration of contrast. Sagittal and coronal reformatted images also obtained. This CT examination was performed using dose optimization techniques as appropriate, variously including the following: *Automated exposure control *Adjustment of mA and/or kV according to patient size (this includes techniques or standardized protocols for targeted exams where dose is matched to indication/reason for exam; i.e. extremities or head) *Use of iterative reconstruction technique DLP: 1648 mGy-cm FINDINGS: There is mild cerebral volume loss with prominence of the lateral and the third ventricles. The cortical sulci are widened appropriately. The fourth ventricle and basal cisterns are normally outlined. There is minimal bilateral periventricular diminished attenuation. There is no acute territorial defect, hemorrhage or midline shift. Calvarium: Intact. Facial bones: There is right inferior frontal/supraorbital/periorbital/right paranasal soft tissue swelling. There is a mildly displaced fracture right mid nasal bone. There also appears to be a fracture of the inferior nasal spine. No other fracture is seen. There is maxillary sinus mucosal thickening. No suspicious maxillary sinus air-fluid levels are seen. Cervical spine: There is straightening of the expected cervical spine curvature. There is diffuse wrrr-ub-arfxgodk cervical disc degenerative change with loss of disc space, endplate change and posterior osteophytes associated with diffuse mild facet osteoarthritic hypertrophic change with multilevel spinal canal and neuroforaminal narrowing. There is there is no fracture. Soft tissues are unremarkable. The visualized upper lung guerra are clear. CT/CT head/brain wo IV con IMPRESSION: No acute intracranial abnormality. Right inferior frontal/supraorbital/periorbital/right perinasal soft tissue swelling. Mildly displaced right nasal bone fracture and fracture of the inferior nasal spine. Cervical disc degenerative change with straightening of the cervical spine curvature. No evidence for cervical spine fracture.
--- NOTE | ~2023-03-13 | CT_ITS ---
EXAMINATION: CT HEAD WITHOUT CONTRAST CT CERVICAL SPINE WITHOUT CONTRAST CT FACIAL BONES WITHOUT CONTRAST CLINICAL INFORMATION: Fall. Head strike. COMPARISON: None available. TECHNIQUE: Contiguous axial imaging was performed through the head, facial bones and cervical spine without intravenous administration of contrast. Sagittal and coronal reformatted images also obtained. This CT examination was performed using dose optimization techniques as appropriate, variously including the following: *Automated exposure control *Adjustment of mA and/or kV according to patient size (this includes techniques or standardized protocols for targeted exams where dose is matched to indication/reason for exam; i.e. extremities or head) *Use of iterative reconstruction technique DLP: 1648 mGy-cm FINDINGS: There is mild cerebral volume loss with prominence of the lateral and the third ventricles. The cortical sulci are widened appropriately. The fourth ventricle and basal cisterns are normally outlined. There is minimal bilateral periventricular diminished attenuation. There is no acute territorial defect, hemorrhage or midline shift. Calvarium: Intact. Facial bones: There is right inferior frontal/supraorbital/periorbital/right paranasal soft tissue swelling. There is a mildly displaced fracture right mid nasal bone. There also appears to be a fracture of the inferior nasal spine. No other fracture is seen. There is maxillary sinus mucosal thickening. No suspicious maxillary sinus air-fluid levels are seen. Cervical spine: There is straightening of the expected cervical spine curvature. There is diffuse ermr-vs-xqpadjmw cervical disc degenerative change with loss of disc space, endplate change and posterior osteophytes associated with diffuse mild facet osteoarthritic hypertrophic change with multilevel spinal canal and neuroforaminal narrowing. There is there is no fracture. Soft tissues are unremarkable. The visualized upper lung guerra are clear. CT/CT cervical spine wo IV con IMPRESSION: No acute intracranial abnormality. Right inferior frontal/supraorbital/periorbital/right perinasal soft tissue swelling. Mildly displaced right nasal bone fracture and fracture of the inferior nasal spine. Cervical disc degenerative change with straightening of the cervical spine curvature. No evidence for cervical spine fracture.
--- NOTE | ~2023-03-13 | CT_ITS ---
EXAMINATION: CT HEAD WITHOUT CONTRAST CT CERVICAL SPINE WITHOUT CONTRAST CT FACIAL BONES WITHOUT CONTRAST CLINICAL INFORMATION: Fall. Head strike. COMPARISON: None available. TECHNIQUE: Contiguous axial imaging was performed through the head, facial bones and cervical spine without intravenous administration of contrast. Sagittal and coronal reformatted images also obtained. This CT examination was performed using dose optimization techniques as appropriate, variously including the following: *Automated exposure control *Adjustment of mA and/or kV according to patient size (this includes techniques or standardized protocols for targeted exams where dose is matched to indication/reason for exam; i.e. extremities or head) *Use of iterative reconstruction technique DLP: 1648 mGy-cm FINDINGS: There is mild cerebral volume loss with prominence of the lateral and the third ventricles. The cortical sulci are widened appropriately. The fourth ventricle and basal cisterns are normally outlined. There is minimal bilateral periventricular diminished attenuation. There is no acute territorial defect, hemorrhage or midline shift. Calvarium: Intact. Facial bones: There is right inferior frontal/supraorbital/periorbital/right paranasal soft tissue swelling. There is a mildly displaced fracture right mid nasal bone. There also appears to be a fracture of the inferior nasal spine. No other fracture is seen. There is maxillary sinus mucosal thickening. No suspicious maxillary sinus air-fluid levels are seen. Cervical spine: There is straightening of the expected cervical spine curvature. There is diffuse nvbq-bm-onuwqksj cervical disc degenerative change with loss of disc space, endplate change and posterior osteophytes associated with diffuse mild facet osteoarthritic hypertrophic change with multilevel spinal canal and neuroforaminal narrowing. There is there is no fracture. Soft tissues are unremarkable. The visualized upper lung guerra are clear. CT/CT facial bones wo IV con IMPRESSION: No acute intracranial abnormality. Right inferior frontal/supraorbital/periorbital/right perinasal soft tissue swelling. Mildly displaced right nasal bone fracture and fracture of the inferior nasal spine. Cervical disc degenerative change with straightening of the cervical spine curvature. No evidence for cervical spine fracture.
[2023-03-13 14:05] VITALS: BP 133/79; PULSE 90; RESP 18; TEMP 36.4; O2SAT 98; BMI 32.0
--- NOTE | 2023-03-13 14:06 | ED.GENADULT ---
HPI - General Adult General Chief complaint: Fall Stated complaint: R Si8de Face & Rib Pain S/P Fall 03/13/23 Time Seen by Provider: 03/13/23 16:05 Source: patient Mode of arrival: ambulatory Limitations: no limitations History of Present Illness HPI narrative: Patient is a 67-year-old male presenting to the emergency department with complaint of right eye pain, swelling, and ecchymosis, as well as right rib pain after a slip and fall prior to arrival. Reports that he was cleaning at home and slipped, denies any dizziness or lightheadedness prior to fall. States that he hit his face on a metal pole as he was falling. Denies loss of consciousness. Denies dizziness, lightheadedness. Denies any vision changes. Denies headache. He is not anticoagulated. States that his nose was bleeding immediately after the fall which has since resolved. States that he felt ok after the fall but came to the ED when he looked in the mirror and saw the bruising to his eye. Reports history of cataract surgery, states he normally wears glasses but does not have them with him. MD complaint: head injury Onset (ago): hour(s) Location: head, face and chest Severity: mild Quality: aching Pain Consistency: constant Relieving factors: none Exacerbating factors: none Associated symptoms: denies other symptoms Treatments prior to arrival: none Related Data Previous Rx's Medication Instructions Recorded sildenafil 100 mg tablet 100 mg PO DAILY PRN sexual 12/02/20 activity 30 days #30 tabs tamsulosin 0.4 mg capsule 0.4 mg PO BEDTIME 90 days #90 caps 04/04/22 Allergies Allergy/AdvReac Type Severity Reaction Status Date / Time No Known Allergies Allergy Verified 03/13/23 14:09 [No Known Allergies*] Review of Systems Review of Systems: As per HPI Yes all other systems are reviewed and are negative Constitutional: Constitutional: Reports as per HPI [facility] Past Medical History Medical History Bladder outlet obstruction Erectile dysfunction due to arterial insufficiency Weak urinary stream Surgical History H/O shoulder replacement Social History Social History Advance Directives: No Advance Directives Information Provided: Yes Physical Exam ED Vital Signs: Vital Signs - 24 hr 03/13/23 14:05 Temperature 97.5 F Pulse Rate 90 Respiratory Rate 18 Blood Pressure 133/79 Pulse Oximetry 98 Oxygen Delivery Method Room Air BMI result Body Mass Index 32.0 Vital signs have been reviewed and appear to be correct. Blood pressure normal. Heart rate normal. Respiratory rate normal. Temperature normal. Oxygen saturation normal. Const General: cooperative, healthy appearing and no acute distress Orientation/consciousness: oriented to person, oriented to place, oriented to time and patient oriented x3 Limitations: no limitations HENMT Head: Yes No palpable skull fracture present and Yes normocephalic Head images: 1. ecchymosis to right upper eyelid and lateral eye Ears: hearing grossly normal bilaterally, external ears normal, TM's normal bilaterally and EAC's normal General nose exam: Normal nares present, Normal nasal mucous membranes and turbinates present, Normal septum present, No nasal discharge present and Abnormal external nose present nasal tenderness and nasal swelling; no nasal lacerations Face and sinus: Yes face symmetric, No maxillary instability and Yes sinus tenderness (right ethmoid) Mouth: Normal oral and palatal mucosa present, lip normal, tongue normal, oropharynx normal and moist mucous membranes Teeth and gingiva: dentition normal Throat: Yes uvula midline Eyes Eyelids: Yes eyelid abnormality (Right upper eyelid ecchymosis) Conjunctivae: conjunctivae normal Sclerae: sclerae normal Pupils: Equal, round and reactive pupils present EOM: EOMs intact bilaterally Neck Neck: Yes normal visual inspection, Yes full ROM, Yes trachea midline and Yes supple Chest Chest palpation & inspection: normal inspection of the chest and tenderness rib right mid-axillary line involving the 9th rib and involving the 10th rib Resp Effort & Inspection: normal respiratory effort and able to speak in complete sentences Auscultation: clear to auscultation bilaterally Cardio Rate: regular rate Rhythm: regular rhythm Heart sounds: S1 normal heart sound present and S2 normal heart sound present GI Inspection: Yes normal to inspection and No abdominal wall ecchymosis Palpation (GI): Soft to palpation and nontender Auscultation: normoactive bowel sounds General: Yes no CVA tenderness Back/Spine/Pelvis Back: no CVA tenderness Cervical Spine: normal cervical lordosis, cervical ROM normal, No Cervical spine tenderness and No step off deformity Thoracic/Lumbar Spine: thoracic and lumbar spine normal to inspection, thoraco-lumbar ROM normal, No thoracic spinal tenderness and No lumbar spinal tenderness Skin General skin exam: elasticity normal and turgor normal Neuro General: oriented to person, oriented to place, oriented to time, patient oriented x3, moves all extremities, no focal motor deficits and CN's II-XI intact bilaterally Cranial nerves: Yes Equal, round and reactive pupils present Cognition (Neuro): normal cognition Extrem General: Yes full ROM, Yes no pedal edema and Yes no calf tenderness Psych Mental Status: mental status grossly normal Affect: normal affect Thought process: Normal thought process present Course Course Course Narrative: This is an RME: Additional HPI, ROS, PE not included below will be deferred to primary provider. 67 yo f hx of [facility], ED presents s/p slip nikos fall hit his face on the corner of something now presenting w/ r sided facial pain, headache. No LOC not on thinners PE evident trauma to r side of face and nose ? fx Imaging ordered Medical Decision Making Medical Decision Making [facility] Narrative: Patient is a 67-year-old male presenting to the emergency department with complaint of right eye pain, swelling, and ecchymosis, as well as right rib pain after a slip and fall prior to arrival. On exam patient is awake, A+Ox3, VS WNL, afebrile, normal neurological exam without focal deficits, physical exam findings as above. Given reported symptoms and physical exam findings, initial differential includes orbital fracture, orbital contusion, nasal fracture, nasal contusion, skull fracture, ICH, cervical fracture, rib fracture, pneumothorax. Labs notable for mild leukocytosis, likely related to trauma, no significant electrolyte abnormalities. X-ray notable for no acute rib fractures. CT shows no skull fracture, no ICH, no cervical fracture. CT face shows mildly displaced right nasal fracture and nasal spine fracture. My interpretation is in agreement with the radiologist's interpretation. Results discussed with patient all questions answered. Will refer to ENT for further evaluation and management of nasal fractures. Strict return precautions discussed at bedside with patient. Advised alternating Tylenol and ibuprofen as needed for pain, applying ice intermittently. Patient verbalized understanding of and agreement with plan. Differential Diagnosis Differential Diagnoses: The differential diagnosis associated with the presentation includes As per [facility]. Admission/Observation Consideration of admission/observation: Escalation of care including admission/observation considered Lab Data [facility] Lab Attestation statement: I reviewed the patient's lab results. As per MDM. 03/13/23 16:15 03/13/23 16:15 Labs: Lab Results 03/13/23 Range/Units 16:15 WBC 15.5 H (4.8-10.8) X10*3/uL RBC 5.38 (4.60-5.80) X10*6/uL Hgb 14.9 (14.0-18.0) g/dl Hct 47.0 (42.0-52.0) % MCV 87.4 (80.0-98.0) fL MCH 27.7 (27.0-33.0) pg MCHC 31.7 (31.0-36.0) g/dl RDW 14.5 (11.0-16.0) % Plt Count 263 (160-400) X10*3/uL MPV 9.8 (9.4-12.4) fL Immature Gran % (Auto) 0.5 H (0.0-0.4) % Neut % (Auto) 88.0 H (45-73) % Lymph % (Auto) 7.0 L (20-40) % Moffat % (Auto) 4.3 (2-11) % Eos % (Auto) 0.1 (0-4) % Baso % (Auto) 0.1 (0-2) % Lymph # (Auto) 1.1 L (1.2-4.9) X10*3/uL Moffat # (Auto) 0.7 (0.1-1.2) X10*3/uL Eos # (Auto) 0.0 (0.0-0.4) X10*3/uL Baso # (Auto) 0.0 (0.0-0.2) X10*3/uL Abs Immat Gran (auto) 0.07 H (0.00-0.03) X10*3/uL Absolute Neuts (auto) 13.7 H (2.0-8.3) x10*3/uL Absolute Nucleated RBC 0.000 (0.0-0.012) X10*3/uL Nucleated RBC % (auto) 0.0 (0.0-0.2) /100WBC PT 12.6 (11.1-13.3) SEC INR 1.0 (0.9-1.1) Sodium 141 (135-145) mmol/L Potassium 4.8 (3.3-5.1) mmol/L Chloride 108 (96-108) mmol/L Carbon Dioxide 28 (22-29) mmol/L Anion Gap 10 L (12-20) BUN 18 H (9-16) mg/dL Creatinine 1.01 (0.5-1.4) mg/dL Estim Creat Clear Calc 86.0 Estimated GFR > 60 Random Glucose 123 H (60-115) mg/dL Calcium 9.9 (8.4-10.2) mg/dL Total Bilirubin 0.4 (0.0-1.0) mg/dL AST 30 (5-37) U/L ALT 26 (0-40) U/L Alkaline Phosphatase 93 (39-117) U/L Total Protein 8.2 H (6.5-8.0) g/dL Albumin 4.5 (3.5-5.0) g/dL Independent Interpretation I performed an independent interpretation of an: Plain X-Ray and CT Scan Interpretation: No acute rib fractures on rib x-ray, no evidence of pneumothorax No skull fracture or ICH on CT head, no cervical fracture Mildly displaced right nasal bone fracture and fracture of inferior nasal spine Radiology Impression Discussion of test interpretation with radiology: I have reviewed the radiologist's reading. Radiologist Impression: XR/XR ribs RT min 3V w CXR1V IMPRESSION: 1. No acute abnormality of the chest. 2. No acute osseous abnormality of the right ribs. CT/CT facial bones wo IV con IMPRESSION: No acute intracranial abnormality. Right inferior frontal/supraorbital/periorbital/right perinasal soft tissue swelling. Mildly displaced right nasal bone fracture and fracture of the inferior nasal spine. Cervical disc degenerative change with straightening of the cervical spine curvature. No evidence for cervical spine fracture. External Record Review External record reviewed: Inpatient record, Office record and Outpatient record Discharge Plan Discharge Clinical Impression: Closed fracture nasal bone, Contusion of right orbit, Contusion of rib on right side Patient Disposition: Home, Self-Care Instructions: Nasal Fracture (ED), Facial Contusion (ED) Additional Instructions: You are evaluated in the emergency department today for injuries after a fall. Your CT scan showed evidence of right nasal bone fracture. You are being referred to ENT for further management of this, please call their office for an appointment. Your CT scan did not show evidence of any skull fracture or bleeding in your brain. Your rib x-ray did not show evidence of a fracture. You should apply ice to the affected areas for 10-15 minutes at a time several times daily, using caution not to apply ice directly to skin. You can take 600 mg ibuprofen or 650 mg Tylenol every 6 hours as needed for pain. Follow-up with your primary care provider this week. Return to the emergency department if you develop severe headache, vision changes, dizziness, lightheadedness, fainting, difficulty breathing or any other concerning symptoms. Prescriptions: No Action tamsulosin 0.4 mg capsule 0.4 mg PO BEDTIME 90 Days Qty: 90 3RF sildenafil 100 mg tablet 100 mg PO DAILY PRN (Reason: sexual activity) 30 Days Qty: 30 1RF Rx Instructions: administer 60 minutes before intended activity Referrals: [facility] [Provider Group] Stand Alone Forms: Work/School Release
[2023-03-13 16:22] LABS: MANUAL DIFF FLAG NO
[2023-03-13 16:23] LABS: Basophils Percent Auto 0.1 % (0-2); Eosinophils Percent Auto 0.1 % (0-4); Hemoglobin 14.9 g/dl (14.0-18.0); Imm Gran Abs Auto 0.07 X10*3/uL (0.00-0.03); Imm Gran Pct Auto 0.5 % (0.0-0.4); Lymphocytes Absolute Auto 1.1 X10*3/uL (1.2-4.9); Mean Corpuscular HGB Conc 31.7 g/dl (31.0-36.0); Mean Corpuscular Hemoglobin 27.7 pg (27.0-33.0); Mean Corpuscular Volume 87.4 fL (80.0-98.0); Mean Platelet Volume 9.8 fL (9.4-12.4); Monocytes Absolute Auto 0.7 X10*3/uL (0.1-1.2); Monocytes Percent Auto 4.3 % (2-11); Neutrophils Absolute Auto 13.7 x10*3/uL (2.0-8.3); Platelet Count 263 X10*3/uL (160-400); Red Blood Count 5.38 X10*6/uL (4.60-5.80); Red Cell Distribution Width 14.5 % (11.0-16.0); White Blood Count 15.5 X10*3/uL (4.8-10.8)
--- OUTSIDE RECORDS SUMMARY | 2023-03-13 16:27 | XMS_ITS | Continuity of Care Document ---
Author Name Unknown Organization [facility] Address [address] [place] [id number] Care Team Providers Care Senior Structural Engineer Name Role Phone [place] MONTANO, Sarah Primary Care Physician Encounter [facility] Date(s): 10/11/22 - 11/10/22 [facility] [address] [place], [place] [address] Allergies, Adverse Reactions, Alerts No Known Allergies Immunizations Given and Recorded Vaccine Date Status Refusal Reason [id number] 12y+ bivalent booster vax 02/13/22 Recorded influenza virus vaccine, inactivated 02/10/22 Ryan rded influenza virus vaccine, inactivated 01/05/21 Ryan rded influenza virus vaccine, inactivated 12/18/18 Ryan rded influenza virus vaccine, inactivated 1 02/14/18 Gi kyle influenza virus vaccine, inactivated 2 01/10/17 Gi kyle influenza virus vaccine, inactivated 03/02/16 Give n influenza virus vaccine, inactivated 01/18/15 Ryan rded influenza virus vaccine, inactivated 01/03/15 Give n SARS-CoV-2 mRNA ([id number]) vax 10/11/21 Recorded pneumococcal 23-valent vaccine 3, 4 06/20/21 Given SARS-CoV-2 (COVID-19) mRNA BNT-162b2 vac 02/24/21 Recorded SARS-CoV-2 (COVID-19) mRNA BNT-162b2 vac 07/09/20 Recorded SARS-CoV-2 (COVID-19) mRNA BNT-162b2 vac 06/18/20 Recorded zoster vaccine, inactivated 09/04/20 Recorded zoster vaccine, inactivated 12/08/19 Recorded pneumococcal 13-valent vaccine 5 06/01/20 Given Influenza Virus Vaccine (oldterm) 6 02/08/20 Recor ded tetanus/diphtheria/pertussis, acel(Tdap) 02/09/15 Given 1Result Comment: [02/14/2018] [facility] [id number] 2Result Comment: [facility] [id number] 3Early/Late Reason: Early/Late Reason: Other : . 4Result Comment: [facility] [id number] 5Result Comment: [facility] [id number] 6Result Comment: PHARMACY Medications amLODIPine 10 mg oral tablet 1 tablet, By Mouth, Daily, # 90 tablet, 1 Refills, Maintenance, 07/17/22 14:11:00 EDT, [facility]/pharmacy#[id number], 175, cm, 07/17/22 13:13:00 EDT, Height Start Date: 07/17/22 Status: Ordered Compression Stockings See Instructions, # 2 each, Refills 3, Tot. Refills 3, Maintenance, Dx: Venous Insufficiency surgical, knee length 20-30 mm Hg, 07/15/21 8:26:00 EDT, Supply Start Date: 07/15/21 Status: Ordered famotidine 20 mg oral tablet 20 mg, 1, tablet, By Mouth, Daily, # 30 tablet, Refills 5, Tot. Refills 5, Maintenance, 01/07/21 9:33:00 EDT, Route to Pharmacy Electronically, [facility]/pharmacy #[id number], Partial fill upon patient request if the prescription is for a schedule II opioid drug.... Start Date: 01/07/21 Status: Ordered garlic oral tablet 0 Refills, Maintenance, 12/17/18 9:14:05 EDT Start Date: 12/17/18 Status: Ordered ibuprofen 600 mg oral tablet 600 mg, 1, tablet, By Mouth, Every 6 hours, with food or milk, # 30 tablet, Refills 0, Tot. Refills0, Maintenance, 04/04/21 17:59:00 EST, Route to Pharmacy Electronically, [facility]/pharmacy #[id number], Partial fill upon patient request if the prescription is f... Start Date: 04/04/21 Status: Ordered tamsulosin 0.4 mg oral capsule 0.4 mg, 1, capsule, By Mouth, Daily, Refills 0, Maintenance, 12/17/18 9:13:40 EDT Start Date: 12/17/18 Status: Ordered Vitamin C By Mouth, Daily, 0 Refills, Maintenance, 06/20/21 13:40:00 EST, Partial fill upon patient request if the prescription is for a schedule II opioid drug. 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
--- OUTSIDE RECORDS SUMMARY | 2023-03-13 16:28 | XMS_ITS | Continuity of Care Document ---
Author Name Unknown Organization [facility] Address [address] [place] [address]- Care Team Providers Care Naval Marine Engineer Name Role Phone [place] MONTANO, Kent Primary Care Physician Encounter [facility] Date(s): 11/21/22 - 12/21/22 [facility] [address], [place] [address] Attending Physician: King Tellez Admitting Physician: AdmKing lugo Referring Physician: Admtr, [id number] Allergies, Adverse Reactions, Alerts No Known Allergies Immunizations Given and Recorded Vaccine Date Status Refusal Reason [id number] 12y+ bivalent booster vax 02/13/22 Recorded influenza [...] vaccine, inactivated 01/03/15 Give n SARS-CoV-2 mRNA ([id number]) vax 10/11/21 Recorded pneumococcal 23-valent vaccine 3, 4 06/20/21 Given SARS-CoV-2 (COVID-19) mRNA BNT-162b2 vac 02/24/21 Recorded SARS-CoV-2 (COVID-19) mRNA BNT-162b2 vac 07/09/20 Recorded SARS-CoV-2 (COVID-19) mRNA BNT-162b2 vac 06/18/20 Recorded zoster vaccine, inactivated 09/04/20 Recorded zoster vaccine, inactivated 12/08/19 Recorded pneumococcal 13-valent vaccine 5 06/01/20 Given Influenza Virus Vaccine (oldterm) 6 02/08/20 Recor ded tetanus/diphtheria/pertussis, acel(Tdap) 02/09/15 Given 1Result Comment: [02/14/2018] [facility] [phone] 2Result Comment: [facility] [phone] 3Early/Late Reason: Early/Late Reason: Other : . 4Result Comment: [facility] [phone] 5Result Comment: [facility] [phone] 6Result Comment: PHARMACY Medications Compression Stockings See Instructions, # 2 each, Refills 3, Tot. Refills 3, Maintenance, Dx: Venous Insufficiency surgical, knee length 20-30 mm Hg, 07/15/21 8:26:00 EDT, Supply Start Date: 07/15/21 Status: Ordered garlic oral tablet 0 Refills, Maintenance, 12/17/18 9:14:05 EDT Start Date: 12/17/18 Status: Ordered lisinopril 20 mg oral tablet 20 mg, 1, tablet, By Mouth, Daily, # 30 tablet, Refills 1, Tot. Refills 1, Maintenance, 12/01/22 10:35:00 EDT, Route to Pharmacy Electronically, [facility]/pharmacy #[id number], Partial fill upon patient request if the prescription is for a schedule II opioid drug... Start Date: 12/01/22 Status: Ordered tamsulosin 0.4 mg oral capsule [...] Primary Care Member Role: PCP Address: Address: [address] [place] [address] [address] [place] [address]- Care Team Related Persons Name: IVANIA MCCOY Address: home [address] [address] Name: SADAF RAINES Address: home [address] [place] [address] Name: AILYN RAINES Address: home [address] [place] [id number]
--- OUTSIDE RECORDS SUMMARY | 2023-03-13 16:28 | XMS_ITS | Continuity of Care Document ---
Author Name Unknown Organization [facility] Adult Address [address] [place] [address]- Care Team Providers Care Wheelman Name Role Phone Maine MONTANO, [place] Primary Care Physician Encounter [facility] Date(s): 12/01/22 - 12/08/22 [facility] Adult [address] [place] [address]- Encounter Diagnosis HTN (hypertension)(Discharge Diagnosis) - 12/01/22 Ankle swelling(Discharge Diagnosis) - 12/01/22 Attending Physician: Slava DAMIAN, Cordelia Muhammad Allergies, Adverse Reactions, Alerts No Known Allergies Immunizations Given and Recorded Vaccine Date Status Refusal Reason [id number] 12y+ bivalent booster vax 02/13/22 Recorded influenza [...] vaccine, inactivated 01/03/15 Give n SARS-CoV-2 mRNA (bebizvu-ljmg-bvuew) vax 10/11/21 Recorded pneumococcal 23-valent vaccine 3, [...] Given 1Result Comment: [02/14/2018] [facility] [phone] 2Result Comment: [facility] [phone] 3Early/Late Reason: Early/Late Reason: Other : . 4Result Comment: [facility] [id number] 5Result Comment: [facility] [phone] 6Result Comment: PHARMACY Medications Compression Stockings See [...] 12/01/22 10:35:00 EDT, Route to Pharmacy Electronically, [facility]/pharmacy #[id number], Partial fill upon patient request if the [...] List Condition Confirmation Course Effective Dates Status [facility] atus Informant Cataract, bilateral Confirmed Active Bladder outlet obstruction Confirmed Active Bilateral hydrocele Confirmed Active ED (erectile dysfunction) Confirmed Active HTN (hypertension) Confirmed Active Obesity Confirmed Active Severe obesity (BMI 35.0-39.9) with comorbidity Confirmed Active 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 Active Diagnosis Diagnosis Type Effective Dates Health Status Cl inical Service Informant HTN (hypertension) Discharge Diagnosis 12/01/22 Ankle swelling Discharge Diagnosis 12/01/22 Vital Signs Most recent to oldest [Reference Range]: 1 Height 175 cm (12/01/22 9:56 AM) Weight 109.1 kg (12/01/22 9:56 AM) Oxygen Saturation [94-100 %] 98 % (12/01/22 9:56 AM) Pulse Rate [55-90 bpm] 75 bpm (12/01/22 9:56 AM) Body Mass Index [18.5-24.99 kg/m2] 35.62 kg/m2 *>HHI* (12/01/22 9:56 AM) Blood Pressure [90-138/55-84 mm Hg] 136/ 81mm Hg (12/01/22 9:56 AM) Temperature [96.8-100.4 DegF] 98.2 DegF (12/01/22 9:56 AM) Mode of Delivery (Oxygen) Room air (12/01/22 9:56 AM) Blood pressure sites Arm, left (12/01/22 9:56 AM) Temperature Route Temporal (12/01/22 9:56 AM) Weight Obtained Via Standing scale (12/01/22 9:56 AM) Social History Social History Type Response Smoking Status Former smoker; Other : quit 1969; entered on: 02/09/15 Sex Note * Eleni Whalen: PERFORM, SIGN, VERIFY Event Display: Patient Education/Instruction Authored Date: [id number] [facility] *[facility] Clinical Summary Name JESSICA MCCOY Age 66 Years 1955 PCP [place] MONTANO, Sarah [id number] Visit Date 12/01/2022 09:31:00 Additional Instructions: Scheduled Appointments?? Future Appointments ?*[facility] ?[address],??[address] ?Phone:??--?Fax:??-- ?Appt. Date:??01/19/2023?10:50 AM ?Scheduled Provider:??Sarah Grove MD Follow-Up Instructions ?? With: Address: When: Sarah Grove MD 12/01/2022 12:00 AM Comments: contact office in 3-4 weeks with home BP reading Diagnosis Essential (primary) hypertension; Effusion, unspecified ankle Medications: Please continue your medications until treatment is completed or stopped by your provider. Discuss any questions related to medications with your provider. New Medications [id number], [address] [place] [id number], [phone] Lisinopril (lisinopril 20 mg oral tablet) 1 tab(s) Oral Daily. Refills: 1. Next Dose: Medications to Continue with No Changes These medications were not printed or sent to your pharmacy Ascorbic Acid (Vitamin C) Oral Daily. Next Dose: Durable Medical Equipment (Compression Stockings) Dx: Venous Insufficiency surgical, knee length 20-30 mm Hg. Refills: 3. Next Dose: Garlic (garlic oral tablet) Next Dose: Miscellaneous Rx (VITAMIN D3 GUMMIES) Next Dose: Tamsulosin (tamsulosin 0.4 mg oral capsule) 1 capsule Oral Daily. Next Dose: Allergy Info:?? NKA Medications Given This Visit Future Orders ?No future orders Vital Signs Height 175 cm Weight 109.1 kg BMI 35.62 kg/m2 Blood Pressure 136 mm Hg/81 mm Hg Temperature 98.2 DegF Pulse Rate 75 bpm Respiratory Rate 02 Sat Mode of Delivery 98 %/Room air You can now view a summary of your hospital visit from the comfort of your home through a free online portal called [employer]. [employer] is a website that allows you to securely view your medical information including discharge summary, medications and follow-up visits. ??You can alsosend a secure electronic message to your doctor???s office to request appointments, renew medications or just ask a question. You can enroll at [email or web address] or register during your next office visit. Disclaimer:?? The information provided is of a general nature and is intended to be used in conjunction with the recommendations and advice of your health care practitioner. ??Every effort has been made to ensure that the information provided is accurate and complete at the time it is provided to you however, as your needs change, or, as new ??information becomes available, different or additional instructions may be required. If you have questions, please consult with your primary care provider or pharmacist, as appropriate. ??This information is not intended to serve as substitution for assessment and evaluation by a qualified health care provider. If you do not have a primary care provider, you may find a [facility] provider by calling [facility] [employer] at [phone]. For information about the plan of care including goals and instructions for your diagnosis, please see the patient education orders section of this document. Patient Education Materials?? The content of this educational material or handout may have been modified, supplemented, or adapted from its original content and format to support your individualized medical care. Patient Care team information Care Team Personnel Name: Sarah Grove MD Position: S Physician - Primary Care Member Role: PCP Address: Address: [address] [place] [address] 3rd Floor [facility] [place] [address]- [place] Care Team Related Persons Name: IVANIA MCCOY Address: home [address] [address] Name: SADAF RAINES Address: home [address] [place] [address] Name: AILYN RAINES Address: home [address] [place] [id number]
--- OUTSIDE RECORDS SUMMARY | 2023-03-13 16:28 | XMS_ITS | Continuity of Care Document ---
Author Name Unknown Organization [facility] Adult Address [address] [place] [address]- Care Team Providers Care Supervisor [employer] Name Role Phone Maine MONTANO, [place] Primary Care Physician Encounter [facility] Date(s): 01/23/23 - 02/22/23 [facility] Adult [address] [place] [address]- Allergies, Adverse Reactions, Alerts Substance Reaction Severity Status lisinopril cough Active Immunizations Given and Recorded Vaccine Date Status Refusal Reason influenza virus vaccine, inactivated 1 01/19/23 Gi kyle influenza virus vaccine, inactivated 02/10/22 Ryan rded influenza virus vaccine, inactivated 01/05/21 Ryan rded influenza virus vaccine, inactivated 12/18/18 Ryan rded influenza virus vaccine, inactivated 2 02/14/18 Gi kyle influenza virus vaccine, inactivated 3 01/10/17 Gi kyle influenza virus vaccine, inactivated 03/02/16 Give n influenza virus vaccine, inactivated 01/18/15 Ryan rded influenza virus vaccine, inactivated 01/03/15 Give n [id number] 12y+ bivalent booster vax 02/13/22 Recorded SARS-CoV-2 mRNA (sysonlp-oypo-jnshh) vax 10/11/21 Recorded pneumococcal 23-valent vaccine 4, 5 06/20/21 Given SARS-CoV-2 (COVID-19) mRNA BNT-162b2 vac 02/24/21 Recorded SARS-CoV-2 (COVID-19) mRNA BNT-162b2 vac 07/09/20 Recorded SARS-CoV-2 (COVID-19) mRNA BNT-162b2 vac 06/18/20 Recorded zoster vaccine, inactivated 09/04/20 Recorded zoster vaccine, inactivated 12/08/19 Recorded pneumococcal 13-valent vaccine 6 06/01/20 Given Influenza Virus Vaccine (oldterm) 7 02/08/20 Recor ded tetanus/diphtheria/pertussis, acel(Tdap) 02/09/15 Given 1Result Comment: [facility] [phone] 2Result Comment: [02/14/2018] [facility] [phone] 3Result Comment: [facility] [phone] 4Early/Late Reason: Early/Late Reason: Other : . 5Result Comment: [facility] [phone] 6Result Comment: [facility] [phone] 7Result Comment: PHARMACY Medications amLODIPine 5 mg oral tablet 1 tablet = 5 mg, By Mouth, Daily, # 90 tablet, 1 Refills, Maintenance, 02/20/23 12:54:00 EST, Tablet, [facility]/pharmacy #[id number], Partial fill upon patient request if the prescription is for a schedule II opioid drug., 175, cm, 02/09/23 16:59:00 EDT, Height Start Date: 02/20/23 Status: Ordered Compression Stockings See Instructions, # 2 each, Refills 3, Tot. Refills 3, Maintenance, Dx: Venous Insufficiency surgical, knee length 20-30 mm Hg, 07/15/21 8:26:00 EDT, Supply Start Date: 07/15/21 Status: Ordered Fish Oil By Mouth, 0 Refills, Maintenance, 01/19/23 11:04:00 EDT, Partial fill upon patient request if the prescription is for a schedule II opioid drug. Start Date: 01/19/23 Status: Ordered garlic oral tablet 0 Refills, Maintenance, 12/17/18 9:14:05 EDT Start Date: 12/17/18 Status: Ordered losartan 100 mg oral tablet 1 tablet = 100 mg, By Mouth, Daily, # 90 tablet, 1 Refills, Maintenance, 01/19/23 11:20:00 EDT, Tablet, [facility]/pharmacy #[id number], Partial fill upon patient request if the prescription is for a schedule II opioid drug., 175, cm, 01/19/23 11:15:00 EDT, Height Start Date: 01/19/23 Status: Ordered tamsulosin 0.4 mg oral capsule [...] dysfunction) Confirmed Active HTN (hypertension) Confirmed Active Obese class I Confirmed Active Obesity Confirmed Active 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
--- OUTSIDE RECORDS SUMMARY | 2023-03-13 16:28 | XMS_ITS | Continuity of Care Document ---
Author Name Unknown Organization [facility] Adult Address [address] [place] [address]- Care Team Providers Care Fish Farmer Name Role Phone Maine MONTANO, Sarah Primary Care Physician Encounter [facility] Date(s): 07/17/22 - 07/24/22 [facility] Adult [address] [place] [address]- Encounter Diagnosis Well adult exam(Discharge Diagnosis) - 07/17/22 HTN (hypertension)(Discharge Diagnosis) - 07/17/22 Severe obesity (BMI 35.0-39.9) with comorbidity(Discharge Diagnosis) - 07/17/22 Bladder outlet obstruction(Discharge Diagnosis) - 07/17/22 ED (erectile dysfunction)(Discharge Diagnosis) - 07/17/22 Cataract, bilateral(Discharge Diagnosis) - 07/17/22 Screening cholesterol level(Discharge Diagnosis) - 07/17/22 Diabetes mellitus screening(Discharge Diagnosis) - 07/17/22 Prostate cancer screening(Discharge Diagnosis) - 07/17/22 Right ear impacted cerumen(Discharge Diagnosis) - 07/17/22 Attending Physician: Sarah Grove MD Allergies, Adverse Reactions, Alerts No Known Allergies Immunizations Given and Recorded Vaccine Date Status Refusal Reason [id number] 12y+ bivalent booster vax 02/13/22 Recorded influenza [...] vaccine, inactivated 01/03/15 Give n SARS-CoV-2 mRNA (rbvmbgt-jbfb-ttrat) vax 10/11/21 Recorded pneumococcal 23-valent vaccine 3, 4 06/20/21 Given SARS-CoV-2 (COVID-19) mRNA BNT-162b2 vac 02/24/21 Recorded SARS-CoV-2 (COVID-19) mRNA BNT-162b2 vac 07/09/20 Recorded SARS-CoV-2 (COVID-19) mRNA BNT-162b2 vac 06/18/20 Recorded zoster vaccine, inactivated 09/04/20 Recorded zoster vaccine, inactivated 12/08/19 Recorded pneumococcal 13-valent vaccine 5 06/01/20 Given Influenza Virus Vaccine (oldterm) 6 02/08/20 Recor ded tetanus/diphtheria/pertussis, acel(Tdap) 02/09/15 Given 1Result Comment: [02/14/2018] [facility] [phone] 2Result Comment: [facility] [phone] 3Early/Late Reason: Early/Late Reason: Other : . 4Result Comment: [facility] [phone] 5Result Comment: [facility] [phone] 6Result Comment: PHARMACY Medications amLODIPine 10 mg oral tablet 1 tablet, By Mouth, Daily, # 90 tablet, 1 Refills, Maintenance, 07/17/22 14:11:00 EDT, [facility]/pharmacy#[id number], 175, cm, 07/17/22 13:13:00 EDT, Height Start [...] EDT, Route to Pharmacy Electronically, [facility]/pharmacy #[id number], Partial fill upon patient request [...] EST, Route to Pharmacy Electronically, [facility]/pharmacy #[id number], Partial fill upon patient request if the [...] Diagnosis Type Effective Dates Health Status Clinical Service Informant Well adult exam Discharge Diagnosis 07/17/22 HTN (hypertension) Discharge Diagnosis 07/17/22 Severe obesity (BMI 35.0-39.9) with comorbidity Discharge Diagnosis 07/17/22 Bladder outlet obstruction Discharge Diagnosis 07/17/22 ED (erectile dysfunction) Discharge Diagnosis 07/17/22 Cataract, bilateral Discharge Diagnosis 07/17/22 Screening cholesterol level Discharge Diagnosis 07/17/22 Diabetes mellitus screening Discharge Diagnosis 07/17/22 Prostate cancer screening Discharge Diagnosis 07/17/22 Right ear impacted cerumen Discharge Diagnosis 07/17/22 Vital Signs Most recent to oldest [Reference Range]: 1 Height 175 cm (07/17/22 1:11 PM) Weight 107.2 kg (07/17/22 1:11 PM) Oxygen Saturation [94-100 %] 100 % (07/17/22 1:11 PM) Pulse Rate [55-90 bpm] 93 bpm *H* (07/17/22 1:11 PM) Body Mass Index [18.5-24.99 kg/m2] 35 kg /m2 *>HHI* (07/17/22 1:11 PM) Blood Pressure [90-138/55-84 mm Hg] 137/ 79mm Hg (07/17/22 1:11 PM) Temperature [96.8-100.4 DegF] 98 DegF (07/17/22 1:11 PM) Mode of Delivery (Oxygen) Room air (07/17/22 1:11 PM) Blood pressure sites Arm, left (07/17/22 1:11 PM) Temperature Route Oral (07/17/22 1:11 PM) Social History Social History Type Response Smoking Status Former smoker; Other : quit 1969; entered on: 02/09/15 Sex Note * Eleni Whalen: PERFORM, SIGN, VERIFY Event Display: Patient Education/Instruction Authored Date: [id number] [facility] Clinical Summary Name JESSICA MCCOY Age 66 Years 1955 PCP Sarah Grove MD PCP Visit Date 07/17/2022 12:56:00 Additional Instructions: Scheduled Appointments?? Future Appointments ?No Future Appointments Scheduled Follow-Up Instructions ?? With: Address: When: Sarah Grove MD Within 1 year With: Address: When: Sarah Grove MD Within 6 months Diagnosis Male erectile dysfunction, unspecified; Encounter for screening for lipoid disorders; Impacted cerumen, right ear; Encounter for screening for diabetes mellitus; Encounter for screening for malignantneoplasm of prostate; Essential (primary) hypertension; Morbid (severe) obesity due to excess calories; Unspecified cataract; Encounter for general adult medical examination without abnormal findings; Bladder-neck obstruction Medications: Please continue your medications until treatment is completed or stopped by your provider. Discuss any questions related to medications with your provider. Medications to Continue with No Changes [id number], [address] [place], [place] [id number], [phone] Amlodipine (amLODIPine 10 mg oral tablet) 1 tab(s) Oral Daily. Refills: 1. Next Dose: These medications were not printed or sent to your pharmacy Ascorbic Acid (Vitamin C) Oral Daily. Next Dose: Durable Medical Equipment (Compression Stockings) Dx: Venous Insufficiency surgical, knee length 20-30 mm Hg. Refills: 3. Next Dose: Famotidine (famotidine 20 mg oral tablet) 1 tab(s) Oral Daily. Refills: 5. Next Dose: Garlic (garlic oral tablet) Next Dose: Ibuprofen (ibuprofen 600 mg oral tablet) 1 tab(s) Oral every 6 hours. with food or milk. Refills: 0. Next Dose: Miscellaneous Rx (VITAMIN D3 GUMMIES) Next Dose: Tamsulosin (tamsulosin 0.4 mg oral capsule) 1 capsule Oral Daily. Next Dose: Allergy Info:?? NKA Medications Given This Visit Future Orders ?No future orders Vital Signs Height 175 cm Weight 107.2 kg BMI 35 kg/m2 Blood Pressure 137 mm Hg/79 mm Hg Temperature 98 DegF Pulse Rate 93 bpm Respiratory Rate 02 Sat Mode of Delivery 100 %/Room air You can now view a summary of your hospital visit from the comfort of your home through a free online portal called [employer]. [employer] is a website that allows you to securely view your medical information including discharge summary, medications and follow-up visits. ??You can alsosend a secure electronic message to your doctor???s office to request appointments, renew medications or just ask a question. You can enroll at [email or web address] or register during your next office visit. [...] primary care provider, you may find a [facility] provider by calling [facility] [employer] at [phone]. For information about the plan of care including goals and instructions for your diagnosis, please see the patient education orders section of this document. Patient Education Materials?? The content of this educational material or handout may have been modified, supplemented, or adapted from its original content and format to support your individualized medical care. Prevention Guidelines, Men Ages 65 and Older Screening tests and vaccines are an important part of managing your health. Health counseling is essential, too. Below are guidelines for these, for men ages 65 and older. Talk with your healthcare provider to make sure you???re up-to-date on what you need. Screening Who needs it How often Abdominal aortic aneurysm Men ages 65 to 75 who have ever smoked 1 ultrasound Alcohol misuse All men in this age group At routine exams Blood pressure All men in this age group Every 2 years if your blood pressure is less than 120/80 mm Hg; yearly if your systolic blood pressure is 120 to 139 mm Hg, or your diastolic blood pressure reading is 80 to 89 mm Hg Colorectal cancer All men in this age group Flexible sigmoidoscopy every 5 years, or colonoscopy every 10 years, or double- contrast barium enema every 5 years; yearly fecal occult blood test or fecal immunochemical test; or a stool DNA test asoften as your healthcare provider advises; talk with your healthcare provider about which tests arebest for you Depression All men in this age group At routine exams Type 2 diabetes or prediabetes All adults beginning at age 45 and adults without symptoms at any age who are overweight or obese and have 1 or more other risk factors for diabetes At least every 3 years Hepatitis C Men at increased risk for infection ??? talk with your healthcare provider At routine exams High cholesterol or triglycerides All men in this age group At least every 5 years HIV Men at increased risk for infection ??? talk with your healthcare provider At routine exams Lung cancer Adults ages 55 to 80 who have smoked Yearly screening in smokers with 30 pack-year history of smoking or who quit within 15 years Obesity All men in this age group At routine exams Prostate cancer All men in this age group, talk to healthcare provider about risks and benefits of digital rectal exam (AUREA) and prostate-specific antigen (PSA) screening1 At routine exams Syphilis Men at increased risk for infection ??? talk with your healthcare provider At routine exams Tuberculosis Men at increased risk for infection ??? talk with your healthcare provider Ask your healthcare provider Vision All men in this age group Every 1 to 2 years; if you have a chronic health condition, ask your healthcare provider if you needs exams more often Vaccine Who needs it How often Chickenpox (varicella) All men in this age group who have no record of this infection or vaccine 2 doses; second dose should be given at least 4 weeks after the first dose Hepatitis A Men at increased risk for infection ??? talk with your healthcare provider 2 doses given at least 6 months apart Hepatitis B Men at increased risk for infection ??? talk with your healthcare provider 3 doses over 6 months; second dose should be given 1 month after the first dose; the third dose should be given at least 2 months after the second dose and at least 4 months after the first dose Haemophilus influenzae Type B (HIB) Men at increased risk for infection ??? talk with your healthcare provider 1 to 3 doses Influenza (flu) All men in this age group Once a year Meningococcal Men at increased risk for infection ??? talk with your healthcare provider 1 or more doses Pneumococcal??conjugate vaccine (PCV13)??and pneumococcal polysaccharide??vaccine (PPSV23) All men in this age group 1 dose of each vaccine Tetanus/diphtheria/ pertussis (Td/Tdap) booster All men in this age group Td every 10 years, or Tdap if you will have contact with a child younger than 12 months old Zoster All men in this age group 1 dose Counseling Who needs it How often Diet and exercise Men??who are overweight or obese When diagnosed, and then at routine exams Fall prevention (exercise, vitamin D supplements) All men in this age group At routine exams Sexually transmitted infection Men at increased risk for infection ??? talk with your healthcare provider At routine exams Use of daily aspirin Men ages 45 to 79 at risk for cardiovascular health problems At routine exams Use of tobacco and the health affects it can cause All men in this age group Every visit [address] [place] [address] [facility] ?? 3640-[address] [employer] [place] [address]. All rights reserved. This information is not intended as a substitute for professional medical care. Always follow your healthcare professional's instructions. Patient Care team information Care Team Personnel Name: Sarah Grove MD Position: [facility] Primary Care Physician Member Role: PCP Address: Address: [address] [place] [address] [address] [place] [address]- Care Team Related Persons Name: IVANIA MCCOY Address: home [address] [place] [address] Name: SADAF RAINES Address: [address] Name: AILYN RAINES Address: [address]
--- OUTSIDE RECORDS SUMMARY | 2023-03-13 16:28 | XMS_ITS | Continuity of Care Document ---
Author Name Unknown Organization [facility] Adult Address [address] [place] [address]- Care Team Providers Care Environmental Studies Department Chair Name Role Phone [place] MONTANO, [place] Primary Care Physician [place] [facility] [place] 07/21/22 - 08/20/22 [facility] Adult [address] [place] [address]- Allergies, Adverse Reactions, Alerts No Known Allergies Immunizations Given and Recorded Vaccine Date Status Refusal Reason [id number] 12y+ bivalent booster vax 02/13/22 Recorded influenza virus vaccine, inactivated 02/10/22 Ryan rded influenza virus vaccine, inactivated 01/05/21 Ryan rded influenza virus vaccine, inactivated 12/18/18 Ryan rded influenza virus vaccine, inactivated 1 02/14/18 Gi kyel influenza virus vaccine, inactivated 2 01/10/17 Gi kyle influenza virus vaccine, inactivated 03/02/16 Give n influenza virus vaccine, inactivated 01/18/15 Ryan rded influenza virus vaccine, inactivated 01/03/15 Give n SARS-CoV-2 mRNA (uzdoupr-ammr-rvbbr) vax 10/11/21 Recorded pneumococcal 23-valent vaccine 3, 4 06/20/21 Given SARS-CoV-2 (COVID-19) mRNA BNT-162b2 vac 02/24/21 Recorded SARS-CoV-2 (COVID-19) mRNA BNT-162b2 vac 07/09/20 Recorded SARS-CoV-2 (COVID-19) mRNA BNT-162b2 vac 06/18/20 Recorded zoster vaccine, inactivated 09/04/20 Recorded zoster vaccine, inactivated 12/08/19 Recorded pneumococcal 13-valent vaccine 5 06/01/20 Given Influenza Virus Vaccine (oldterm) 6 02/08/20 Recor ded tetanus/diphtheria/pertussis, acel(Tdap) 02/09/15 Given 1Result Comment: [02/14/2018] [facility] [phone] 2Result Comment: [facility] [phone] 3Early/Late Reason: Early/Late Reason: Other : . 4Result Comment: [facility] [id number] 5Result Comment: [facility] [phone] 6Result Comment: PHARMACY Medications amLODIPine 10 mg oral tablet 1 tablet, By Mouth, Daily, # 90 tablet, 1 Refills, Maintenance, 07/17/22 14:11:00 EDT, [facility]/pharmacy#[id number], 175, cm, 07/17/22 13:13:00 EDT, Height [...] 01/07/21 9:33:00 EDT, Route to Pharmacy Electronically, [facility]/pharmacy #[id number], Partial fill upon patient [...] 04/04/21 17:59:00 EST, Route to Pharmacy Electronically, [facility]/pharmacy #[id number], Partial fill upon patient [...] Personnel Name: Sarah Grove MD Position: S Primary Care Physician Member Role: PCP Address: Address: [address] [place] [address] 3rd Floor [place], [place] [address] Care Team Related Persons Name: IVANIA MCCOY Address: home [address] Name: SADAF RAINES Address: home [address] [place] [address] Name: AILYN RAINES Address: [address]
--- OUTSIDE RECORDS SUMMARY | 2023-03-13 16:29 | XMS_ITS | Continuity of Care Document ---
Author Name Unknown Organization [facility] Adult Address [address] [place] [address]- Care Team Providers Care Office Services Coordinator Name Role Phone [place] MONTANO, Sarah Primary Care Physician [place] [facility] [place](s): 01/19/23 - 01/26/23 [facility] Adult [address] [place] [address]- Encounter Diagnosis HTN (hypertension)(Discharge Diagnosis) - 01/19/23 Obese class I(Discharge Diagnosis) - 01/19/23 Skin tag(Discharge Diagnosis) - 01/19/23 Cough(Discharge Diagnosis) - 01/19/23 Attending Physician: Maine MONTANO, Sarah Allergies, Adverse Reactions, Alerts Substance Reaction Severity Status lisinopril cough Active amLODIPine ankle swelling Active Immunizations Given and Recorded Vaccine Date [...] influenza virus vaccine, inactivated 01/03/15 Give n [id number] 12y+ bivalent booster vax 02/13/22 Recorded SARS-CoV-2 mRNA (mxsonxa-fgkn-befab) vax 10/11/21 Recorded pneumococcal 23-valent vaccine 4, 5 06/20/21 Given SARS-CoV-2 (COVID-19) mRNA BNT-162b2 vac 02/24/21 Recorded SARS-CoV-2 (COVID-19) mRNA BNT-162b2 vac 07/09/20 Recorded SARS-CoV-2 (COVID-19) mRNA BNT-162b2 vac 06/18/20 Recorded zoster vaccine, inactivated 09/04/20 Recorded zoster vaccine, inactivated 12/08/19 Recorded pneumococcal 13-valent vaccine 6 06/01/20 Given Influenza Virus Vaccine (oldterm) 7 02/08/20 Recor ded tetanus/diphtheria/pertussis, acel(Tdap) 02/09/15 Given 1Result Comment: [facility] [phone] 2Result Comment: [02/14/2018] [facility] [phone] 3Result Comment: [facility] [phone] 4Early/Late Reason: Early/Late Reason: Other : . 5Result Comment: [facility] [phone] 6Result Comment: [facility] [phone] 7Result Comment: PHARMACY Medications Compression Stockings See Instructions, [...] 1 Refills, Maintenance, 01/19/23 11:20:00 EDT, Tablet, [facility]/pharmacy #[id number], Partial fill upon patient request if the prescription is for a schedule II opioid drug., 175, cm, 01/19/23 11:15:00 EDT, Height Start Date: 01/19/23 Status: Ordered tamsulosin 0.4 mg oral capsule 0.4 mg, 1, capsule, By Mouth, Daily, Refills 0, Maintenance, 12/17/18 9:13:40 EDT Start Date: 9/3/19 Status: Ordered Vitamin C By Mouth, Daily, [...] inical Service Informant HTN (hypertension) Discharge Diagnosis 01/19/23 Obese class I Discharge Diagnosis 01/19/23 Skin tag Discharge Diagnosis 01/19/23 Cough Discharge Diagnosis 01/19/23 Vital Signs Most recent to oldest [Reference Range]: 1 2 3 Height 175 cm (01/19/23 11:15 AM) 175 cm (01/19/23 11:05 AM) 175 cm (01/19/23 10:47 AM) Weight 106.9 kg (01/19/23 10:47 AM) Oxygen Saturation [94-100 %] 99 % (01/19/23 10:47 AM) Pulse Rate [55-90 bpm] 78 bpm (01/19/23 10:47 AM) Body Mass Index [18.5-24.99 kg/m2] 34.91 kg/m2 *>HHI* (01/19/23 10:47 AM) Blood Pressure [90-138/55-84 mm Hg] 148/92mm Hg *H* (01/19/23 11:15 AM) 166/92mm Hg *H* (01/19/23 11:05 AM) 165/89mm Hg *H* (01/19/23 10:47 AM) Mode of Delivery (Oxygen) Room air (01/19/23 10:47 AM) Blood pressure sites Arm, right (01/19/23 11:05 AM) Arm, right (01/19/23 10:47 AM) Social History Social History Type Response Smoking Status Former smoker; Other : quit 1969; entered on: 02/09/15 Sex Note * Eleni Whalen: PERFORM, SIGN, VERIFY Event Display: Patient Education/Instruction Authored Date: [id number] [facility] *[facility] Clinical Summary Name JESSICA MCCOY Age 67 Years 1955 PCP Sarah Grove MD PCP Visit Date 01/19/2023 10:42:00 Additional Instructions: Scheduled Appointments?? Future Appointments ?No Future Appointments Scheduled Follow-Up Instructions ?? With: Address: When: Follow up, 1 to 2 Weeks 01/19/2023 12:00 AM Comments: Check BP and send readings With: Address: When: Maine MONTANO, Sarah Within 6 months Comments: HUPD/MWV Diagnosis Other hypertrophic disorders of the skin; Cough, unspecified; Body mass index [BMI] 30.0-30.9, adult; Essential (primary) hypertension Medications: Please continue your medications until treatment is completed or stopped by your provider. Discuss any questions related to medications with your provider. New Medications [id number], [address] [place] [id number], [phone] Losartan (losartan 100 mg oral tablet) 1 tab(s) Oral Daily. [...] Miscellaneous Rx (VITAMIN D3 GUMMIES) Next Dose: [place]-3 Polyunsaturated Fatty Acids (Fish Oil) Oral. Next Dose: Tamsulosin (tamsulosin 0.4 mg oral capsule) 1 capsule Oral Daily. Next Dose: No Longer Take the Following Medications Lisinopril (lisinopril 20 mg oral tablet) 1 tab(s) Oral Daily. Refills: 1. Allergy Info:?? amLODIPine; lisinopril Medications Given This Visit Medication Dose Route influenza virus vaccine, inactivated (influenza virus, inactivated vacc (High Dose)) 0.7 mL Intramuscular Future Orders ?No future orders Vital Signs Height 175 cm Weight 106.9 kg BMI 34.91 kg/m2 Blood Pressure 148 mm Hg/92 mm Hg Temperature Pulse Rate 78 bpm Respiratory Rate 02 Sat Mode of Delivery 99 %/Room air You can now view a summary of your hospital visit from the comfort of your home through a free online portal called [facility]. [facility] is a website that allows you to securely view your medical information including discharge summary, medications and follow-up visits. ??You can alsosend a secure electronic message to your doctor???s office to request appointments, renew medications or just ask a question. You can enroll at [email or web address] or register during your next office visit. [...] primary care provider, you may find a [facility] provider by calling [facility] [employer] Link at [phone]. [facility], in keeping with [facility] guidance, no longer requires face masks for staff, patientsor visitors in most situations. Similar to time spent indoors at other locations, there is the chance that you were exposed to respiratory viruses during your time with us (such as flu or COVID-19).? If you develop symptoms concerning for a viral respiratory infection, please seek testing (and treatment if indicated) from your medical provider or home test kit. For information about the plan of care including goals and instructions for your diagnosis, please see the patient education orders section of this document. Patient Education Materials?? The content of this educational material or handout may have been modified, supplemented, or adapted from its original content and format to support your individualized medical care. * Rodney Pope: PERFORM, SIGN, VERIFY Event Display: Patient Education/Instruction Authored Date: [facility] *[facility] Clinical Summary Name JESSICA MCCOY Age 67 Years 1955 PCP Sarah Grove MD PCP Visit Date 01/19/2023 10:42:00 Additional Instructions: Scheduled Appointments?? Future Appointments ?No Future Appointments Scheduled Follow-Up Instructions ?? With: Address: When: Follow up, 1 to 2 Weeks 01/19/2023 12:00 AM Comments: Check BP and send readings With: Address: When: Maine MONTANO, Sarah Within 6 months Comments: HUPD/MWV Diagnosis Other hypertrophic disorders of the skin; Body mass index [BMI] 30.0-30.9, adult; Essential (primary) hypertension Medications: Please continue your medications until treatment is completed or stopped by your provider. Discuss any questions related to medications with your provider. New Medications [id number], [address] [place] [id number], [phone] Losartan (losartan 100 mg oral tablet) 1 tab(s) Oral Daily. [...] Miscellaneous Rx (VITAMIN D3 GUMMIES) Next Dose: Brooklyn-3 Polyunsaturated Fatty Acids (Fish Oil) Oral. Next Dose: Tamsulosin (tamsulosin 0.4 mg oral capsule) 1 capsule Oral Daily. Next Dose: No Longer Take the Following Medications Lisinopril (lisinopril 20 mg oral tablet) 1 tab(s) Oral Daily. Refills: 1. Allergy Info:?? amLODIPine; lisinopril Medications Given This Visit Medication Dose Route influenza virus vaccine, inactivated (influenza virus, inactivated vacc (High Dose)) 0.7 mL Intramuscular Future Orders ?No future orders Vital Signs Height 175 cm Weight 106.9 kg BMI 34.91 kg/m2 Blood Pressure 148 mm Hg/92 mm Hg Temperature Pulse Rate 78 bpm Respiratory Rate 02 Sat Mode of Delivery 99 %/Room air You can now view a summary of your hospital visit from the comfort of your home through a free online portal called [facility]. [facility] is a website that allows you to securely view your medical information including discharge summary, medications and follow-up visits. ??You can alsosend a secure electronic message to your doctor???s office to request appointments, renew medications or just ask a question. You can enroll at [email or web address] or register during your next office visit. [...] primary care provider, you may find a [facility] provider by calling [facility] [employer] Link at [phone]. [facility], in keeping with [facility] guidance, no longer requires face masks for staff, patientsor visitors in most situations. Similar to time spent indoors at other locations, there is the chance that you were exposed to respiratory viruses during your time with us (such as flu or COVID-19).? If you develop symptoms concerning for a viral respiratory infection, please seek testing (and treatment if indicated) from your medical provider or home test kit. For information about the plan of care [...] Team Personnel Name: Sarah Grove MD Position: [facility] Physician - Primary Care Member Role: PCP Address: Address: [address] 3rd [place] [address]- [place] Care Team Related Persons Name: IVANIA MCCOY Address: home [address] [place] [address] Name: SADAF RAINES Address: [address] Name: AILYN RAINES Address: [address]
--- OUTSIDE RECORDS SUMMARY | 2023-03-13 16:29 | XMS_ITS | Continuity of Care Document ---
Author Name Unknown Organization [facility] Adult Address [address] [place] [address]- Care Team Providers Care Family Life Educator Name Role Phone [place] MONTANO, [place] Primary Care Physician [place] [facility] [place]/19[place]23 - 02/18/23 [facility] Adult [address] [place] [address]- Attending Physician: King Tellez Admitting Physician: AdmKing [...] influenza virus vaccine, inactivated 01/03/15 Give n [id number] 12y+ bivalent booster vax 02/13/22 Recorded SARS-CoV-2 mRNA (gltsuci-apat-nxyny) vax 10/11/21 Recorded pneumococcal 23-valent vaccine 4, 5 06/20/21 Given SARS-CoV-2 (COVID-19) mRNA BNT-162b2 vac 02/24/21 Recorded SARS-CoV-2 (COVID-19) mRNA BNT-162b2 vac 07/09/20 Recorded SARS-CoV-2 (COVID-19) mRNA BNT-162b2 vac 06/18/20 Recorded zoster vaccine, inactivated 09/04/20 Recorded zoster vaccine, inactivated 12/08/19 Recorded pneumococcal 13-valent vaccine 6 06/01/20 Given Influenza Virus Vaccine (oldterm) 7 02/08/20 Recor ded tetanus/diphtheria/pertussis, acel(Tdap) 02/09/15 Given 1Result Comment: [facility] [phone] 2Result Comment: [02/14/2018] [facility] [phone] 3Result Comment: [facility] [phone] 4Early/Late Reason: Early/Late Reason: Other : . 5Result Comment: [facility] [phone] 6Result Comment: [facility] [phone] 7Result Comment: PHARMACY Medications amLODIPine 5 mg oral tablet 1 tablet = 5 mg, By Mouth, Daily, # 30 tablet, 0 Refills, Maintenance, 01/31/23 17:14:00 EDT, Tablet, [facility]/pharmacy #[id number], Partial fill upon patient request if the prescription is for a schedule II opioid drug., 175, cm, 01/19/23 11:15:00 EDT, Height Start Date: 01/31/23 Status: Ordered Compression Stockings See Instructions, # [...] 1 Refills, Maintenance, 01/19/23 11:20:00 EDT, Tablet, [facility]/pharmacy #[id number], Partial fill upon patient request if [...] : quit 1969; entered on: 02/09/15 Sex EKG study * Event Display: EKG Authored Date: Laboratory * Event Display: Laboratory Result Scanned Authored Date: Patient Care team information Care Team Personnel Name: Sarah Grove MD Position: [facility] Physician - Primary Care Member Role: PCP Address: Address: [address] [place] [address] [address] [place] [address]- Care Team Related Persons Name: IVANIA MCCOY Address: home [address] [place] [address] Name: SADAF RAINES Address: home [address] [place], [place] Name: AILYN RAINES Address: home [address] [place] [address]
--- OUTSIDE RECORDS SUMMARY | 2023-03-13 16:29 | XMS_ITS | Continuity of Care Document ---
Author Name Unknown Organization [facility] Adult Address [address] [place] [address]- Care Team Providers Care Casing Cleaner Name Role Phone [place] MONTANO, [place] Primary Care Physician Encounter [facility] Date(s): 01/30/23 - 03/01/23 [facility] Adult [address] [place] [address]- Allergies, Adverse Reactions, Alerts Substance Reaction Severity [...] influenza virus vaccine, inactivated 01/03/15 Give n [id number] 12y+ bivalent booster vax 02/13/22 Recorded SARS-CoV-2 mRNA (hbnjeul-rzie-xxrnc) vax 10/11/21 Recorded pneumococcal 23-valent vaccine 4, 5 06/20/21 Given SARS-CoV-2 (COVID-19) mRNA BNT-162b2 vac 02/24/21 Recorded SARS-CoV-2 (COVID-19) mRNA BNT-162b2 vac 07/09/20 Recorded SARS-CoV-2 (COVID-19) mRNA BNT-162b2 vac 06/18/20 Recorded zoster vaccine, inactivated 09/04/20 Recorded zoster vaccine, inactivated 12/08/19 Recorded pneumococcal 13-valent vaccine 6 06/01/20 Given Influenza Virus Vaccine (oldterm) 7 02/08/20 Recor ded tetanus/diphtheria/pertussis, acel(Tdap) 02/09/15 Given 1Result Comment: [facility] [phone] 2Result Comment: [02/14/2018] [facility] [phone] 3Result Comment: [facility] [phone] 4Early/Late Reason: Early/Late Reason: Other : . 5Result Comment: [facility] [phone] 6Result Comment: [facility] [phone] 7Result Comment: PHARMACY Medications amLODIPine 5 mg oral tablet 1 tablet = 5 mg, By Mouth, Daily, # 90 tablet, 1 Refills, Maintenance, 02/20/23 12:54:00 EST, Tablet, [facility]/pharmacy #[id number], Partial fill upon patient request [...] 1 Refills, Maintenance, 01/19/23 11:20:00 EDT, Tablet, [facility]/pharmacy #[id number], Partial fill upon patient request [...] Team Personnel Name: Sarah Grove MD Position: [facility] Physician - Primary Care Member Role: PCP Address: Address: [address] [place] [address] 3rd [place] [address]- Care Team Related Persons Name: IVANIA MCCOY Address: home [address] Name: SADAF RAINES Address: home [address] [place], [place] Name: AILYN RAINES Address: home [address] [place] [address]
--- OUTSIDE RECORDS SUMMARY | 2023-03-13 16:29 | XMS_ITS | Continuity of Care Document ---
Author Name Unknown Organization [facility] Adult Address [address] [place] [address]- Care Team Providers Care Senior Firewall Engineer Name Role Phone [place] MONTANO, [place] Primary Care Physician [place] [facility] [place](s): 11/23/22 - 12/23/22 [facility] Adult [address] [place] [address]- Allergies, Adverse Reactions, Alerts No Known Allergies Immunizations Given and Recorded Vaccine Date Status Refusal Reason [id number] 12y+ bivalent booster vax 02/13/22 Recorded influenza [...] vaccine, inactivated 01/03/15 Give n SARS-CoV-2 mRNA (dtuqlul-jeic-mydbu) vax 10/11/21 Recorded pneumococcal 23-valent vaccine 3, 4 06/20/21 Given SARS-CoV-2 (COVID-19) mRNA BNT-162b2 vac 02/24/21 Recorded SARS-CoV-2 (COVID-19) mRNA BNT-162b2 vac 07/09/20 Recorded SARS-CoV-2 (COVID-19) mRNA BNT-162b2 vac 06/18/20 Recorded zoster vaccine, inactivated 09/04/20 Recorded zoster vaccine, inactivated 12/08/19 Recorded pneumococcal 13-valent vaccine 5 06/01/20 Given Influenza Virus Vaccine (oldterm) 6 02/08/20 Recor ded tetanus/diphtheria/pertussis, acel(Tdap) 02/09/15 Given 1Result Comment: [02/14/2018] [facility] [phone] 2Result Comment: [facility] [phone] 3Early/Late Reason: Early/Late Reason: Other : . 4Result Comment: [facility] [phone] 5Result Comment: [facility] [phone] 6Result Comment: PHARMACY Medications Compression Stockings See [...] 12/01/22 10:35:00 EDT, Route to Pharmacy Electronically, [facility]/pharmacy #[id number], Partial fill upon patient request if the [...] Team Personnel Name: Sarah Grove MD Position: [facility] Physician - Primary Care Member Role: PCP Address: Address: [address] [place] [address] 3rd [place] [address]- Care Team Related Persons Name: IVANIA MCCOY Address: home [address] [place] [id number] Name: SADAF RAINES Address: home [address] [place] [address] Name: AILYN RAINES Address: [address] [address]
--- OUTSIDE RECORDS SUMMARY | 2023-03-13 16:29 | XMS_ITS | Continuity of Care Document ---
Author Name Unknown Organization [facility] Adult Address [address] [place] [address]- Care Team Providers Care Cops Name Role Phone [place] MONTANO, [place] Primary Care Physician Encounter [facility] Date(s): 07/19/22 - 08/18/22 [facility] Adult [address] [place] [address]- Allergies, Adverse Reactions, Alerts No Known Allergies Immunizations Given and Recorded Vaccine Date Status Refusal Reason [id number] 12y+ bivalent booster vax 02/13/22 Recorded influenza [...] vaccine, inactivated 01/03/15 Give n SARS-CoV-2 mRNA (jkfxoaz-hslp-juhrs) vax 10/11/21 Recorded pneumococcal 23-valent vaccine 3, [...] Comment: [02/14/2018] [facility] [phone] 2Result Comment: [facility] [phone] 3Early/Late Reason: Early/Late Reason: Other : . 4Result Comment: [facility] [phone] 5Result Comment: [facility] [phone] 6Result Comment: PHARMACY Medications amLODIPine 10 mg oral tablet 1 tablet, By Mouth, Daily, # 90 tablet, 1 Refills, Maintenance, 07/17/22 14:11:00 EDT, [facility]/pharmacy#[id number], 175, cm, 07/17/22 13:13:00 EDT, Height [...] 01/07/21 9:33:00 EDT, Route to Pharmacy Electronically, [facility]/pharmacy #[id number], Partial fill upon patient request [...] 04/04/21 17:59:00 EST, Route to Pharmacy Electronically, [facility]/pharmacy #[id number], Partial fill upon patient request [...] Care Physician Member Role: PCP Address: Address: [address] [place] [address] [address]rd [address] [place], [place] [address] Care Team Related Persons Name: IVANIA MCCOY Address: home [address] Name: SADAF RAINES Address: home [address] [place] [address] Name: AILYN RAINES Address: [address]
--- OUTSIDE RECORDS SUMMARY | 2023-03-13 16:29 | XMS_ITS | Continuity of Care Document ---
Author Name Unknown Organization [facility] Adult Address [address] [place] [address]- Care Team Providers Care Instructional Facilitator Name Role Phone Maine MONTANO, [place] Primary Care Physician [facility]counter [facility] Date(s): 01/24/23 - 02/23/23 [facility] [address] [place] [address]- Allergies, Adverse Reactions, Alerts Substance Reaction Severity [...] influenza virus vaccine, inactivated 01/03/15 Give n [id number] 12y+ bivalent booster vax 02/13/22 Recorded SARS-CoV-2 mRNA (hxxfzus-fezv-clptl) vax 10/11/21 Recorded pneumococcal 23-valent vaccine 4, 5 06/20/21 Given SARS-CoV-2 (COVID-19) mRNA BNT-162b2 vac 02/24/21 Recorded SARS-CoV-2 (COVID-19) mRNA BNT-162b2 vac 07/09/20 Recorded SARS-CoV-2 (COVID-19) mRNA BNT-162b2 vac 06/18/20 Recorded zoster vaccine, inactivated 09/04/20 Recorded zoster vaccine, inactivated 12/08/19 Recorded pneumococcal 13-valent vaccine 6 06/01/20 Given Influenza Virus Vaccine (oldterm) 7 02/08/20 Recor ded tetanus/diphtheria/pertussis, acel(Tdap) 02/09/15 Given 1Result Comment: [facility] [phone] 2Result Comment: [02/14/2018] [facility] [phone] 3Result Comment: [facility] [phone] 4Early/Late Reason: Early/Late Reason: Other : . 5Result Comment: [facility] [phone] 6Result Comment: [facility] [phone] 7Result Comment: PHARMACY Medications amLODIPine 5 mg oral tablet 1 tablet = 5 mg, By Mouth, Daily, # 90 tablet, 1 Refills, Maintenance, 02/20/23 12:54:00 EST, Tablet, [facility]/pharmacy #[id number], Partial [...] 1 Refills, Maintenance, 01/19/23 11:20:00 EDT, Tablet, [facility]/pharmacy #[id number], Partial [...] Team Personnel Name: Sarah Grove MD Position: [facility] Physician - Primary Care Member Role: PCP Address: Address: [address] [place] [address] [address] [place] [address]- Care Team Related Persons Name: IVANIA MCCOY Address: home [address] Name: SADAF RAINES Address: home [address] [place], [place] Name: AILYN RAINES Address: home [address] [place] [address]
--- OUTSIDE RECORDS SUMMARY | 2023-03-13 16:29 | XMS_ITS | Continuity of Care Document ---
Author Name Unknown Organization [facility] Adult Address [address] [place] [address]- Care Team Providers Care Drug Safety Physician Name Role Phone Maine MONTANO, [place] Primary Care Physician Encounter [facility] Date(s): 01/25/23 - 02/24/23 [facility] Adult [address] [place] [address]- Allergies, Adverse Reactions, Alerts Substance Reaction Severity [...] influenza virus vaccine, inactivated 01/03/15 Give n [id number] 12y+ bivalent booster vax 02/13/22 Recorded SARS-CoV-2 mRNA (dvjetxs-ldxv-xgaoh) vax 10/11/21 Recorded pneumococcal 23-valent vaccine 4, [...] Given 1Result Comment: [facility] [phone] 2Result Comment: [02/14/2018] [facility] [place] [phone] 3Result Comment: [facility] [phone] 4Early/Late Reason: Early/Late Reason: Other : . 5Result Comment: [facility] [phone] 6Result Comment: [facility] [facility] [phone] 7Result Comment: PHARMACY Medications amLODIPine 5 mg oral tablet 1 tablet = 5 mg, By Mouth, Daily, # 90 tablet, 1 Refills, Maintenance, 02/20/23 12:54:00 EST, Tablet, [facility]/pharmacy #[id number], Partial fill upon patient request [...] 1 Refills, Maintenance, 01/19/23 11:20:00 EDT, Tablet, [facility]/pharmacy #[id number], Partial fill upon patient request [...] Team Personnel Name: Sarah Grove MD Position: [facility] Physician - Primary Care Member Role: PCP Address: Address: [address] [place] [address] [address] [place] [address]- Care Team Related Persons Name: IVANIA MCCOY Address: home [address] Name: SADAF RAINES Address: home [address] [place], [place] Name: AILYN RAINES Address: home [address] [place] [address]
--- OUTSIDE RECORDS SUMMARY | 2023-03-13 16:29 | XMS_ITS | Continuity of Care Document ---
Author Name Unknown Organization [facility] Adult Address [address] [place] [address]- Care Team Providers Care Alliance Consultant Name Role Phone Maine MONTANO, [place] Primary Care Physician En[place] [facility] Date(s): 12/01/22 - 12/31/22 [facility] Adult [address] [place] [address]- Attending Physician: King Tellez Admitting Physician: King Tellez Referring Physician: AdmtrKing Allergies, Adverse Reactions, Alerts No Known Allergies Immunizations Given and Recorded Vaccine Date Status Refusal Reason [id number] 12y+ bivalent booster vax 02/13/22 Recorded influenza [...] vaccine, inactivated 01/03/15 Give n SARS-CoV-2 mRNA (zmgyjtx-ythn-qrwbb) vax 10/11/21 Recorded pneumococcal 23-valent vaccine 3, 4 06/20/21 Given SARS-CoV-2 (COVID-19) mRNA BNT-162b2 vac 02/24/21 Recorded SARS-CoV-2 (COVID-19) mRNA BNT-162b2 vac 07/09/20 Recorded SARS-CoV-2 (COVID-19) mRNA BNT-162b2 vac 06/18/20 Recorded zoster vaccine, inactivated 09/04/20 Recorded zoster vaccine, inactivated 12/08/19 Recorded pneumococcal 13-valent vaccine 5 06/01/20 Given Influenza Virus Vaccine (oldterm) 6 02/08/20 Recor ded tetanus/diphtheria/pertussis, acel(Tdap) 02/09/15 Given 1Result Comment: [02/14/2018] [facility] [phone] 2Result Comment: [facility] [phone] 3Early/Late Reason: Early/Late Reason: Other : . 4Result Comment: [facility] [phone] 5Result Comment: [facility] [phone] 6Result Comment: PHARMACY Medications Compression Stockings See [...] 12/01/22 10:35:00 EDT, Route to Pharmacy Electronically, [facility]/pharmacy #[id number], Partial fill upon patient request if the [...] Team Personnel Name: Sarah Grove MD Position: [facility] Physician - Primary Care Member Role: PCP Address: Address: [address] [place] [address]- Care Team Related Persons Name: IVANIA MCCOY Address: home [address] [address] Name: SADAF RAINES Address: home [address] [place] [id number] Name: AILYN RAINES Address: [address] [address]
[2023-03-13 16:40] LABS: Prothrombin Time 12.6 SEC (11.1-13.3)
[2023-03-13 16:50] LABS: Alanine Aminotransferase 26 U/L (0-40); Albumin Level 4.5 g/dL (3.5-5.0); Alkaline Phosphatase 93 U/L (39-117); Anion Gap 10 (12-20); Aspartate Amino Transferase 30 U/L (5-37); Bilirubin Total 0.4 mg/dL (0.0-1.0); Blood Urea Nitrogen 18 mg/dL (9-16); Calcium 9.9 mg/dL (8.4-10.2); Carbon Dioxide 28 mmol/L (22-29); Chloride 108 mmol/L (96-108); Estimated Glomerular Filt Rate > 60; Glucose Random 123 mg/dL (60-115); Potassium 4.8 mmol/L (3.3-5.1); Sodium 141 mmol/L (135-145); Total Protein 8.2 g/dL (6.5-8.0)
[2023-03-13 18:31] VITALS: BP 131/78; PULSE 89; RESP 18; TEMP 36.6; O2SAT 98
--- NOTE | 2023-03-13 18:32 | PC.NURSE ---
patient a&ox3, vss, pt to be medicated for mild pain, xrays performed and took some time to be read-pt understanding, pt to be discharged, call ross within reach, will continue to monitor
[2023-03-13] MEDS: Ibuprofen 600 MG TABLET PO (18:35)
[2023-03-13] MEDS: Acetaminophen 325 MG TABLET 650 MG PO (18:35)
== END 2023-03-13 18:39 | disposition home or self-care (01) ==
PROVIDERS: Physician Assistant; Emergency Provider Emergency Medicine; PCP Internal Medicine
DX: S02.2XXA Fracture of nasal bones, initial encounter for closed fracture (principal); S00.11XA Contusion of right eyelid and periocular area, initial encounter; S70.01XA Contusion of right hip, initial encounter; W01.10XA Fall on same level from slipping, tripping and stumbling with subsequent striking against unspecified object, initial encounter; Y93.E9 Activity, other interior property and clothing maintenance; Y92.019 Unspecified place in single-family (private) house as the place of occurrence of the external cause; Y99.9 Unspecified external cause status
CPT/HCPCS: 36415; 70450; 70486; 71101; 72125; 80053; 85025; 85610; 99284

== ENCOUNTER 2023-03-27 16:42 | Outpatient (REF) | payer OTHER, SELFPAY ==
[2023-03-27 18:28] LABS: Prostate Specific Antigen 1.24 ng/mL (<0.05-4.0)
== END 2023-03-27 16:43 | disposition home or self-care (01) ==
LOC: HO.LAB 16:42
PROVIDERS: Visit Provider Urology
DX: N32.0 Bladder-neck obstruction (principal); Z12.5 Encounter for screening for malignant neoplasm of prostate
CPT/HCPCS: 36415; 84153

== ENCOUNTER 2023-04-03 15:12 | Outpatient (AMB) | payer OTHER, SELFPAY ==
--- NOTE | 2023-04-03 15:24 | MHC.OFFVIS ---
Intake Intake Visit Reasons: 1Y PSA(set) Intake Note: Patient is Present for Follow Up Urology Med: Sildenafil, Tamsulosin Antibiotic Allergy: None Blood Thinner: None Allergies No Known Allergies [No Known Allergies*] Allergy (Verified 03/13/23 14:09) Medication List - Last Reconciled 04/03/23 by Michele Nova MD acetaminophen 650 mg (2 x 325 mg) PO Q6H PRN ibuprofen 600 mg PO Q6H PRN lidocaine 5% 1 patch topical DAILY sildenafil 100 mg PO DAILY PRN 30 days tamsulosin 0.4 mg PO BEDTIME 90 days HPI HPI Comments History of Present Illness Details Tim MCCOY is a very pleasant male. He is a patient of Dr Matthews. He is seen for the following urologic conditions. - LUTS - erectile dysfunction Continued effective bladder emptying PVR 10 cc Continue good response to on demand sildenafil PSA stable Hydrocele 6 month follow-up Neurogenic Bladder:? They are here for ?further management for incomplete emptying neurogenic bladder ?- better with medications ?- small stricture on cysto ?- bilateral large hydroceles - offered surgery PSA 12/04 0.5, 04/07 1.24 ? Urinary retention initially found?after ER visit for spontaneous retention - 08/15/17 - prior hx of weak stream, nocturia progressive - trial of finasteride but stopped due to side effects ? Current management?- alpha blockers ? Therapeutic plan?continue medications Erectile dysfunction Responsive to sildenafil PFSH Medical History Bladder outlet obstruction Erectile dysfunction due to arterial insufficiency Weak urinary stream Surgical History H/O shoulder replacement Review of Systems Const Denies chills and Denies fever(s) Card Reports no additional complaints and Denies syncope Resp Denies cough GI Denies abdominal pain and Denies heartburn Reports as per HPI and Denies change in libido Neuro Denies syncope Psych Denies change in libido Endo Denies change in libido Physical Exam Const General: cooperative, healthy appearing, comfortable and no acute distress Orientation/consciousness: patient oriented x3 HEENT Face and sinus: Yes normal facial exam Mouth: moist mucous membranes Neck Neck: Yes normal visual inspection, Yes full ROM and Yes trachea midline Chest Chest palpation & inspection: normal inspection of the chest Resp Effort & Inspection: normal respiratory effort, able to speak in complete sentences and no respiratory distress GI Inspection: Yes normal to inspection Back/Spine/Pelvis Cervical Spine: normal cervical lordosis Thoracic/Lumbar Spine: thoracic and lumbar spine normal to inspection Skin General skin exam: no rashes or lesions noted Neuro General: patient oriented x3, gait normal, tone normal and moves all extremities Extrem General: Yes normal to inspection and Yes capillary refill normal Assessment & Plan Assessment & Plan (1) Hydrocele in adult: Code(s): N43.3 - Hydrocele, unspecified (2) Erectile dysfunction due to arterial insufficiency: Code(s): N52.01 - Erectile dysfunction due to arterial insufficiency (3) Weak urinary stream: Code(s): R39.12 - Poor urinary stream Plan Six month follow-up Orders: Orders US scrotum 6 Months N43.3 - Hydrocele, unspecified Medications: Changed From sildenafil administer 60 minutes before intended activity 100 mg PO DAILY 30 days PRN 30 tabs 1RF sexual activity N52.01 - Erectile dysfunction due to arterial insufficiency To sildenafil administer 60 minutes before intended activity 100 mg PO ONCE PRN 30 tabs 1RF sexual activity 30 days N52.01 - Erectile dysfunction due to arterial insufficiency Refilled tamsulosin 0.4 mg PO BEDTIME 90 caps 3RF 90 days N13.8 - Other obstructive and reflux uropathy, N40.1 - Benign prostatic hyperplasia with lower urinary tract symptoms Patient Instructions: Imaging studies, laboratory and physical exam results were discussed and reviewed in detail. No major barriers to patient understanding were identified. An opportunity to ask questions regarding the treatment plan was provided. All questions were answered. The patient expressed understanding and agreement with the above treatment plan. The patient is aware they should contact our office by phone for worsening of their current condition or the appearance of new urologic symptoms. Compliance is encouraged with any medications and followup testing that is ordered. It is a privilege to participate in the urologic care of your patient. If you have any questions or concerns regarding treatment for the above conditions, or other urologic issues, please do not hesitate to contact me. The office telephone contact is [phone]. This note is constructed using voice recognition software. While every effort has been made to ensure accuracy petroleum engineer errors may have been included. Yours sincerely, Dr Michele Nova MD, [facility] - Urology Providers of Expert, Compassionate Care for the Genitourinary System Coding Level of Care Code Est Pt Level 4 (14763) Diagnoses Hydrocele in adult N43.3 Erectile dysfunction due to arterial insufficiency N52.01 Weak urinary stream R39.12
== END 2023-04-03 16:01 | disposition home or self-care (01) ==
PROVIDERS: PCP Internal Medicine; Visit Provider Urology
DX: N43.3 Hydrocele, unspecified (principal); N52.01 Erectile dysfunction due to arterial insufficiency; R39.12 Poor urinary stream
CPT/HCPCS: 99214

== ENCOUNTER → 2023-04-03 15:12 | Outpatient (BNVA) | payer OTHER, SELFPAY | PROVIDERS: PCP Internal Medicine; Visit Provider Urology | DX: N43.3 Hydrocele, unspecified (principal); N52.01 Erectile dysfunction due to arterial insufficiency; R39.12 Poor urinary stream | CPT/HCPCS: 99212 ==

== ENCOUNTER 2023-09-17 12:30 | Outpatient (REF) | payer OTHER, SELFPAY ==
--- NOTE | ~2023-09-17 | US_ITS ---
EXAMINATION: US SCROTUM CLINICAL INFORMATION: Hydrocele, unspecified. COMPARISON: None available. TECHNIQUE: A sonogram of the scrotum was performed assessing lazaro-scale appearance and color Doppler flow. Spectral Doppler analysis of the arterial and venous flow were performed in the testes bilaterally. FINDINGS: RIGHT: Right testicle measures 4.5 x 2.2 x 3.2 cm, volume 16.1 mL. No focal testicular parenchymal lesions are visualized. Spectral Doppler analysis of the arterial and venous flow is normal in the right testis. The right epididymis is not well seen. No right varicocele is seen. LEFT: Left testicle measures 5.1 x 2.3 x 2.5 cm, volume 15.2 mL. No focal testicular parenchymal lesions are visualized. Spectral Doppler analysis of the arterial and venous flow is minimally increased in the left testis. The left epididymis is not seen. No left varicocele is seen. There is a large left hydrocele with a volume of 503 mL. Multiple internal echoes are seen within the left hydrocele. US/US scrotum IMPRESSION: 1. Normal right testicle. 2. Minimal increased vascularity of the left testis. 3. Large left hydrocele with multiple internal echoes. 4. The left epididymis is not seen. The right epididymis is not well seen. .
== END 2023-09-17 12:31 | disposition home or self-care (01) ==
LOC: HO.US 12:30
PROVIDERS: PCP Internal Medicine; Visit Provider Urology
DX: N43.3 Hydrocele, unspecified (principal)
CPT/HCPCS: 76870

== ENCOUNTER 2023-10-02 15:14 | Outpatient (AMB) | payer OTHER, MEDICAID, SELFPAY ==
--- NOTE | 2023-10-02 15:36 | MHC.OFFVIS ---
Intake Visit Reasons: 6m/US/labs Intake Note: Patient is Present for Follow Up Urology Medication: Tamsulosin, Sildenafil Antibiotic Allergies:None Blood Thinners: None Allergies No Known Allergies [No Known Allergies*] Allergy (Verified 03/13/23 14:09) Medication List - Last Reconciled 10/02/23 by Michele Nova MD acetaminophen 650 mg (2 x 325 mg) PO Q6H PRN ibuprofen 600 mg PO Q6H PRN lidocaine 5% 1 patch topical DAILY sildenafil 100 mg PO ONCE PRN 30 days tamsulosin 0.4 mg PO BEDTIME 90 days HPI Comments Details: Tim MCCOY is a very pleasant male. He is a patient of Dr Matthews. He is seen for the following urologic conditions. - LUTS - erectile dysfunction Six-month follow-up Continued effective bladder emptying PVR low Continue good response to on demand sildenafil Hydrocele review - progressive left hydrocele Recurrence Will do surgery Neurogenic Bladder:? They are here for ?further management for incomplete emptying neurogenic bladder ?- better with medications ?- small stricture on cysto ?- bilateral large hydroceles - offered surgery PSA 12/04 0.5, 04/07 1.24 ? Urinary retention initially found?after ER visit for spontaneous retention - 08/15/17 - prior hx of weak stream, nocturia progressive - trial of finasteride but stopped due to side effects ? Current management?- alpha blockers ? Therapeutic plan?continue medications Erectile dysfunction Responsive to sildenafil PFSH Medical History Bladder outlet obstruction Erectile dysfunction due to arterial insufficiency Weak urinary stream Surgical History H/O shoulder replacement Review of Systems Const Denies chills and Denies fever(s) Card Reports no additional complaints and Denies syncope Resp Denies cough GI Denies abdominal pain and Denies heartburn Reports as per HPI and Denies change in libido Neuro Denies syncope Psych Denies change in libido Endo Denies change in libido Physical Exam Const General: cooperative, healthy appearing, comfortable and no acute distress Orientation/consciousness: patient oriented x3 HEENT Face and sinus: Yes normal facial exam Mouth: moist mucous membranes Neck Neck: Yes normal visual inspection, Yes full ROM and Yes trachea midline Chest Chest palpation & inspection: normal inspection of the chest Resp Effort & Inspection: normal respiratory effort, able to speak in complete sentences and no respiratory distress GI Inspection: Yes normal to inspection Back/Spine/Pelvis Cervical Spine: normal cervical lordosis Thoracic/Lumbar Spine: thoracic and lumbar spine normal to inspection Skin General skin exam: no rashes or lesions noted Neuro General: patient oriented x3, gait normal, tone normal and moves all extremities Extrem General: Yes normal to inspection and Yes capillary refill normal Assessment & Plan Assessment & Plan (1) Hydrocele in adult: Code(s): N43.3 - Hydrocele, unspecified Category: Medical Plan Left hydrocelectomy Risks, benefits and alternatives to therapy were discussed. These include but are not limited to infection, bleeding, damage to local organs and tissues, need for further interventions. Anesthetic risks regarding cardiac arrhythmia, blood clots, and potential mortality were discussed. The patient understands the typical recovery time and the outpatient nature of the procedure. After consideration of these risks the patient gives full informed consent and they wish to move ahead with the procedure. Medications: Refilled tamsulosin 0.4 mg PO BEDTIME 90 days 90 caps 3RF N13.8 - Other obstructive and reflux uropathy, N40.1 - Benign prostatic hyperplasia with lower urinary tract symptoms Patient Instructions: Imaging studies, laboratory and physical exam results were discussed and reviewed in detail. No major barriers to patient understanding were identified. An opportunity to ask questions regarding the treatment plan was provided. All questions were answered. The patient expressed understanding and agreement with the above treatment plan. The patient is aware they should contact our office by phone for worsening of their current condition or the appearance of new urologic symptoms. Compliance is encouraged with any medications and followup testing that is ordered. It is a privilege to participate in the urologic care of your patient. If you have any questions or concerns regarding treatment for the above conditions, or other urologic issues, please do not hesitate to contact me. The office telephone contact is [phone]. This note is constructed using voice recognition software. While every effort has been made to ensure accuracy hospitality host errors may have been included. Yours sincerely, Dr Michele Nova MD, [facility] - Urology Providers of Expert, Compassionate Care for the Genitourinary System Coding Level of Care Code Est Pt Level 4 (15824) Diagnoses Hydrocele in adult N43.3
== END 2023-10-02 16:28 | disposition home or self-care (01) ==
PROVIDERS: PCP Internal Medicine; Visit Provider Urology
DX: N43.3 Hydrocele, unspecified (principal)
CPT/HCPCS: 99214

== ENCOUNTER → 2023-10-02 15:14 | Outpatient (BNVA) | payer OTHER, SELFPAY | PROVIDERS: PCP Internal Medicine; Visit Provider Urology | DX: N43.3 Hydrocele, unspecified (principal); N31.9 Neuromuscular dysfunction of bladder, unspecified; N52.9 Male erectile dysfunction, unspecified | CPT/HCPCS: 99212 ==

== ENCOUNTER 2024-01-09 12:54 | Outpatient (AMB) | payer OTHER, SELFPAY ==
--- NOTE | 2024-01-09 13:03 | A.OFFVIS_ITS ---
Intake Visit Reasons: Discuss Surgical Procedure (hydrocelectomy) Intake Note: Patient is Present for Follow Up to discuss Hydrocelectomy Urology Medication: Sildenafil, Tamsulosin Antibiotic Allergies: None Blood Thinners: Recent PSA: 2022- . Scrotum Ultrasound: 09/2023 [employer] [facility] Required: No Accompanied by: Self / Same As Patient Allergies No Known Allergies [No Known Allergies*] Allergy (Verified 01/09/24 13:09) HPI Comments Details: Tim MCCOY is a very pleasant male. He is a patient of Dr Matthews. He is seen for the following urologic conditions. - LUTS - erectile dysfunction - hydrocele Plan for left hydrocelectomy Procedure reviewed Ultrasound 500 cc Neurogenic Bladder:? They are here for ?further management for incomplete emptying neurogenic bladder ?- better with medications ?- small stricture on cysto ?- bilateral large hydroceles - offered surgery PSA 12/04 0.5, 04/07 1.24 ? Urinary retention initially found?after ER visit for spontaneous retention - 08/15/17 - prior hx of weak stream, nocturia progressive - trial of finasteride but stopped due to side effects ? Current management?- alpha blockers ? Therapeutic plan?continue medications Erectile dysfunction Responsive to sildenafil PFSH Medical History Erectile dysfunction due to arterial insufficiency Bladder outlet obstruction Weak urinary stream Surgical History H/O shoulder replacement Review of Systems Const Denies chills and Denies fever(s) Card Reports no additional complaints and Denies syncope Resp Denies cough GI Denies abdominal pain and Denies heartburn Reports as per HPI and Denies change in libido Neuro Denies syncope Psych Denies change in libido Endo Denies change in libido Physical Exam Const General: cooperative, healthy appearing, comfortable and no acute distress Orientation/consciousness: patient oriented x3 HEENT Face and sinus: Yes normal facial exam Mouth: moist mucous membranes Neck Neck: Yes normal visual inspection, Yes full ROM and Yes trachea midline Chest Chest palpation & inspection: normal inspection of the chest Resp Effort & Inspection: normal respiratory effort, able to speak in complete sentences and no respiratory distress GI Inspection: Yes normal to inspection Back/Spine/Pelvis Cervical Spine: normal cervical lordosis Thoracic/Lumbar Spine: thoracic and lumbar spine normal to inspection Skin General skin exam: no rashes or lesions noted Neuro General: patient oriented x3, gait normal, tone normal and moves all extremities Extrem General: Yes normal to inspection and Yes capillary refill normal Assessment & Plan Assessment & Plan (1) Hydrocele in adult: Code(s): N43.3 - Hydrocele, unspecified Category: Medical Plan Risks, benefits and alternatives to therapy were discussed. These include but are not limited to infection, bleeding, damage to local organs and tissues, need for further interventions. Anesthetic risks regarding cardiac arrhythmia, blood clots, and potential mortality were discussed. The patient understands the typical recovery time and the outpatient nature of the procedure. After consideration of these risks the patient gives full informed consent and they wish to move ahead with the procedure. Left hydrocelectomy Patient Instructions: Imaging studies, laboratory and physical exam results were discussed and reviewed in detail. No major barriers to patient understanding were identified. An opportunity to ask questions regarding the treatment plan was provided. All questions were answered. The patient expressed understanding and agreement with the above treatment plan. The patient is aware they should contact our office by phone for worsening of their current condition or the appearance of new urologic symptoms. Compliance is encouraged with any medications and followup testing that is ordered. It is a privilege to participate in the urologic care of your patient. If you have any questions or concerns regarding treatment for the above conditions, or other urologic issues, please do not hesitate to contact me. The office telephone contact is [phone]. This note is constructed using voice recognition software. While every effort has been made to ensure accuracy deliverer pharmacy errors may have been included. Yours sincerely, Dr Michele Nova MD, [facility] - Urology Providers of Expert, Compassionate Care for the Genitourinary System Coding Level of Care Code Est Pt Level 4 (57418) Diagnoses Hydrocele in adult N43.3
== END 2024-01-09 13:41 | disposition home or self-care (01) ==
PROVIDERS: PCP Internal Medicine; Visit Provider Urology
DX: N43.3 Hydrocele, unspecified (principal)
CPT/HCPCS: 99214

== ENCOUNTER → 2024-01-09 12:54 | Outpatient (BNVA) | payer OTHER, SELFPAY | PROVIDERS: PCP Internal Medicine; Visit Provider Urology | DX: N43.3 Hydrocele, unspecified (principal) | CPT/HCPCS: 99212 ==

== ENCOUNTER 2024-02-25 06:10 | Day surgery (SDC) | payer OTHER, SELFPAY ==
[2024-02-21 14:16] VITALS: BMI 30.1
--- NOTE | 2024-02-21 14:31 | HO.ANESPROP2 ---
Documented by User: Cassi Grace NP 02/21/24 14:31 HPI - Anesthesia Eval Consult details Narrative: 68yo M for Hydrocele Repair PMFSH Active Problems Active Problems: All Active Problems Hydrocele in adult (Acute) Erectile dysfunction due to arterial insufficiency (Acute) Bladder outlet obstruction (Acute) Weak urinary stream (Acute) Past Medical History Medical History HTN (hypertension) Seasonal allergies Erectile dysfunction due to arterial insufficiency Bladder outlet obstruction Weak urinary stream Surgical History Surgical History Hx of detached retina repair Hx of colonoscopy Hx of bilateral cataract extraction History of total replacement of right shoulder joint (~2019) H/O shoulder replacement Social History Social History Household Members: Other Household Members Other:: son Housing: House Are you a primary intensive care unit nurse to a significant other at home: No Do you presently have visiting nurse or other home services: No Patient Tobacco Use Status: Former Tobacco user Tobacco use type: Cigarette Smoked in Last 30 Days: No e-Cigarette/Vaping Use: Never Used Use of substances other than those prescribed or required for medical reasons: No Have you been hit, kicked, punched, or otherwise hurt by someone within the past year? If so, by whom?: No Are you DNR?: No Advance Directives: No Advance Directives Information Provided: Yes Advance Directives on File: No Recently lost weight without trying: No Nutrition Risks: No Nutritional Risk Poor oral hygiene: No Meds Allergies Allergy/AdvReac Type Severity Reaction Status Date / Time lisinopril Allergy Cough Verified 02/25/24 06:56 Home Medications ?Medication ?Instructions ?Recorded ?Confirmed ?Last Taken ?Type amlodipine 5 mg tablet 5 mg PO DAILY 02/21/24 02/25/24 02/25/24 05:15 History losartan 100 mg tablet 100 mg PO DAILY 02/21/24 02/25/24 Unknown History Exam Height,Weight and Vital Signs: Height 5 ft 10 in Weight 95.254 kg Assessment and Plan Assessment Anesthesia Assessment: Chart Reviewed Documented by User: Tami Hauser MD 02/25/24 08:28 [facility] Past Medical History Medical History HTN (hypertension) Seasonal allergies Erectile dysfunction due to arterial insufficiency Bladder outlet obstruction Weak urinary stream Family History Family history of problems with anesthesia: No Surgical History Surgical History Hx of detached retina repair Hx of colonoscopy Hx of bilateral cataract extraction History of total replacement of right shoulder joint (~2019) H/O shoulder replacement History of Problems with Anesthesia: No Social History Social History Household Members: Other Household Members Other:: son Housing: House Are you a primary intensive care unit nurse to a significant other at home: No Do you presently have visiting nurse or other home services: No Patient Tobacco Use Status: Former Tobacco user Tobacco use type: Cigarette Smoked in Last 30 Days: No e-Cigarette/Vaping Use: Never Used Use of substances other than those prescribed or required for medical reasons: No Have you been hit, kicked, punched, or otherwise hurt by someone within the past year? If so, by whom?: No Are you DNR?: No Advance Directives: No Advance Directives Information Provided: Yes Advance Directives on File: No Recently lost weight without trying: No Nutrition Risks: No Nutritional Risk Poor oral hygiene: No Meds Allergies Allergy/AdvReac Type Severity Reaction Status Date / Time lisinopril Allergy Cough Verified 02/25/24 06:56 Home Medications ?Medication ?Instructions ?Recorded ?Confirmed ?Last Taken ?Type amlodipine 5 mg tablet 5 mg PO DAILY 02/21/24 02/25/24 02/25/24 05:15 History losartan 100 mg tablet 100 mg PO DAILY 02/21/24 02/25/24 Unknown History Exam Height,Weight and Vital Signs: Height 5 ft 10 in Weight 95.254 kg Vital Signs Temp Pulse Resp BP Pulse Ox O2 Del Method 02/25/24 06:58 98.2 F 64 16 158/93 H 100 Room Air Airway Mallampati Class: II TM Dist: >3cm Neck ROM: Full Loose/Missing/Broken Teeth: Yes (Some missing teeth. Missing 1 tooth bottom front. Denies broken or loose teeth) Heart: RRR Lungs: CTAB Assessment and Plan Assessment Anesthesia Assessment: Anesthesia Plan Discussed and Chart Reviewed Final Anesthetic Review Family History of Problems with Anesthesia: No History of Problems with Anesthesia: No NPO: Yes ASA Class: II Final Preanesthetic Review: No Changes in Pt Med Stat, Meds/Allgs Chart Reviewed, Consent Obtained/Reviewed and Anes Risks/Benef Reviewed Patient Risk: Low Procedure Risk: Low Assessment/Block/Sedation in SS: Assess/Block/Sedation-SS Anesthetic Plan Anesthetic Plan: GA Disposition: Standard PACU
[2024-02-25] VITALS (8 sets, daily range): BP systolic 127–158; BP diastolic 78–93; PULSE 64–82; RESP 16–18; TEMP 36.2–36.8; O2SAT 97–100
[2024-02-25] MEDS: Lactated Ringers 1,000 ML 100 ML IVCONT (07:24)
--- NOTE | 2024-02-25 07:56 | MHC.SHP ---
Pre-Procedural Eval Section A - 24 Hr Update-Section A only Date of Service: 02/25/24 The patient is an INPATIENT: No Changes since office visit: No Cold of Flu in the past 2 weeks, No New Medical Problems, No Changes in Medication and No Patient answered all questions The patient has been examined within 24 hours of the surgical procedure. The History & Physical has been completed within 30 days and I have reviewed it.: No Section B - Complete if H&P > 30 days Chief Complaint: Hydrocele, unspecified Details of Present Illness: Left hydrocele Relevant Family History (Specify if Yes): No Relevant Social History: None Present Medications: see Short Stay Collaborative assessment Medical History: No relevant PMH History of Previous Operations: No relevant previous surgery Allergies: Allergies Allergy/AdvReac Type Severity Reaction Status Date / Time lisinopril Allergy Cough Verified 02/25/24 06:56 Review of Systems Sugical H&P ROS: Negative: Constitution, Cardiovascular, Respiratory, Neurological, Psychiatric, Hem-Onc, Allergic/Immunologic, Gastrointestinal, Genitourinary, Musculoskeletal, Integumentary, Endocrine and Eyes/Ears/Nose/Throat Exam Surgical H&P Exam: Normal: HEENT, Normal: Heart, Normal: Lungs, Normal: Extremities, Normal: Abdomen, Normal: Skin and Normal: Neurological Plan Diagnosis/Plan: Unchanged (Left hydrocelectomy) I have reviewed the history and physical and performed a pertinent physical examination on my patient. No changes have occurred unless specified. Time Spent With Patient Time: Total time managing care of this patient today ____ minutes.
--- NOTE | 2024-02-25 09:11 | W.PM.OPN ---
Operative Note Operative Note Date of Service: 02/25/24 Narrative: PreOperative Diagnosis: Left hydrocele Post Operative Diagnosis: Left hydrocele Procedure: Hydrocelectomy Surgeon: Dr Michele Nova Anesthesia: General Indications for procedure: Left hydrocele with persistent discomfort - 500 cc on imaging Procedure: After informed consent was verified the patient was brought to the operating room and placed in a supine position. Anesthesia was administered per protocol. Patient was appropriately shaved and genitals were prepped and draped in sterile fashion. Safety pause time-out was performed. Antibiotics being given. Local anesthetic was infiltrated under the skin in a horizontal fashion on the scrotum. Skin incision was made using a blade through the subdermal layer. The tunica around the testicle was elevated and dissected free from surrounding tissue. The avascular plane around the tunica was entered and using a wet sponge blunt dissection was performed. Any small bleeding perforators were cauterized. Due to the size of the hydrocele a decision was made to place 2 stay sutures in elevate the testicle out of the incision. The hydrocele was entered and drained. This allowed the testicle to be delivered from the scrotum. The hydrocele was opened in a longitudinal fashion. The hydrocele was multilocular in nature and had a severely thickened sac. Each locule of the hydrocele was opened and drained. Total drainage was approximately 450 cc. Excess thickened sac was dissected and removed using a LigaSure cautery instrument to minimize porst procedure bleeding. Due to the thickened nature of the hydrocele sac a decision to perform a bottle neck procedure was deferred. All edges were cauterized using either the LigaSure or cautery. Care was taken to avoid the vascular bundle running through the thickened tissue. Skin edges of the tunica were cauterized carefully in order to try to minimize postprocedure hematoma. The testicle with resected sac was placed back into a dependent portion of the scrotum. A Curlew drain was then placed through the dependent portion of the scrotum. Due to the volume of removed fluid a decision was made to also bring the drain out through the initial incision. Overlying fascia layer was closed with a running 3-0 Vicryl suture. Skin was closed with interrupted 3-0 chromic sutures. The Eugenio drain was secured using a safety pin. Soft fluff sponges were placed with mesh pants as dressing. Local anesthetic was placed in inguinal cord for post procedure pain relief. Patient tolerated procedure well was extubated in operating room transferred in stable condition to the recovery area Pathology: Hydrocele sac Drains: Curlew drain as described
== END 2024-02-25 11:03 | disposition home or self-care (01) ==
PROVIDERS: PCP Internal Medicine; Visit Provider Urology
PROC: (CPT 55060; principal; 2024-02-25 08:10)
DX: N43.3 Hydrocele, unspecified (principal); N52.1 Erectile dysfunction due to diseases classified elsewhere; I77.1 Stricture of artery; N32.0 Bladder-neck obstruction; R39.12 Poor urinary stream; I10 Essential (primary) hypertension; Z79.1 Long term (current) use of non-steroidal anti-inflammatories (NSAID); Z79.899 Other long term (current) drug therapy; Z88.8 Allergy status to other drugs, medicaments and biological substances; Z96.612 Presence of left artificial shoulder joint; Z87.891 Personal history of nicotine dependence
CPT/HCPCS: 55040; 88302; 88342; J0690; J1100; J2003; J2405; J2704; J2795; J3010

== ENCOUNTER → 2024-02-25 06:10 | Outpatient (BNV) | payer OTHER, SELFPAY | PROVIDERS: PCP Internal Medicine; Visit Provider Urology | DX: N43.3 Hydrocele, unspecified (principal) | CPT/HCPCS: 55040 ==

== ENCOUNTER → 2024-02-29 13:13 | Outpatient (BNVA) | payer OTHER, SELFPAY | PROVIDERS: PCP Internal Medicine; Visit Provider Urology ==

== ENCOUNTER 2024-04-01 15:03 | Outpatient (AMB) | payer OTHER, SELFPAY ==
--- NOTE | 2024-04-01 15:04 | MHC.OFFVIS ---
Intake Visit Reasons: Hydrocele Repair- follow up Intake Note: Patient is present for HYDROCELE REPAIR F/U Urology Medication:TAMSULOSIN,SILDENAFIL Antibiotic Allergy:NONE Blood Thinner:NONE It Consulting Manager Required: No Allergies lisinopril Allergy (Verified 04/01/24 15:06) Cough HPI Comments Details: Tim MCCOY is a very pleasant male. He is a patient of Dr Matthews. He is seen for the following urologic conditions. - LUTS - erectile dysfunction - hydrocele Follow-up left hydrocelectomy 500 cc drained Well-healed Restart sildenafil Neurogenic Bladder:? They are here for ?further management for incomplete emptying neurogenic bladder ?- better with medications ?- small stricture on cysto PSA 12/04 0.5, 04/07 1.24 ? Urinary retention initially found?after ER visit for spontaneous retention - 08/15/17 - prior hx of weak stream, nocturia progressive - trial of finasteride but stopped due to side effects ? Current management?- alpha blockers ? Therapeutic plan?continue medications Erectile dysfunction Responsive to sildenafil Large hydroceles Effective surgery PFSH Medical History HTN (hypertension) Seasonal allergies Erectile dysfunction due to arterial insufficiency Bladder outlet obstruction Weak urinary stream Surgical History Hx of detached retina repair Hx of colonoscopy Hx of bilateral cataract extraction History of total replacement of right shoulder joint (~2019) H/O shoulder replacement Social History Household Members: Other Household Members Other:: son Housing: House Are you a primary personal care attendant to a significant other at home: No Do you presently have visiting nurse or other home services: No 75 years or older and lives alone: No Patient Tobacco Use Status: Former Tobacco user Tobacco use type: Cigarette e-Cigarette/Vaping Use: Never Used Review of Systems Const Denies chills and Denies fever(s) Card Reports no additional complaints and Denies syncope Resp Denies cough GI Denies abdominal pain and Denies heartburn Reports as per HPI and Denies change in libido Neuro Denies syncope Psych Denies change in libido Endo Denies change in libido Physical Exam Const General: cooperative, healthy appearing, comfortable and no acute distress Orientation/consciousness: patient oriented x3 HEENT Face and sinus: Yes normal facial exam Mouth: moist mucous membranes Neck Neck: Yes normal visual inspection, Yes full ROM and Yes trachea midline Chest Chest palpation & inspection: normal inspection of the chest Resp Effort & Inspection: normal respiratory effort, able to speak in complete sentences and no respiratory distress GI Inspection: Yes normal to inspection Back/Spine/Pelvis Cervical Spine: normal cervical lordosis Thoracic/Lumbar Spine: thoracic and lumbar spine normal to inspection Skin General skin exam: no rashes or lesions noted Neuro General: patient oriented x3, gait normal, tone normal and moves all extremities Extrem General: Yes normal to inspection and Yes capillary refill normal Results AMB Urinalysis, Automated UA Leukoctes 0 Alondra/uL Last Edit by DALIA Cotter on 04/01/24 15:48 UA Nitrite Positive Last Edit by DALIA Cotter on 04/01/24 15:48 UA Urobilinogen 0.2 mg/dL Last Edit by DALIA Cotter on 04/01/24 15:48 UA Protein 15 mg/dL Last Edit by DALIA Cotter on 04/01/24 15:48 UA pH 5.0 Last Edit by DALIA Cotter on 04/01/24 15:48 UA Blood 80 Nirmal/uL Last Edit by DALIA Cotter on 04/01/24 15:48 UA Specific [place] 1.030 Last Edit by DALIA Cotter on 04/01/24 15:48 UA Ketone Negative Last Edit by DALIA Cotter on 04/01/24 15:48 UA Bilirubin 0 mg/dL Last Edit by DALIA Cotter on 04/01/24 15:48 UA Glucose 0 mg/dL Last Edit by DALIA Cotter on 04/01/24 15:48 Assessment & Plan Assessment & Plan (1) Weak urinary stream: Code(s): R39.12 - Poor urinary stream Category: Medical (2) Erectile dysfunction due to arterial insufficiency: Code(s): N52.01 - Erectile dysfunction due to arterial insufficiency Category: Medical (3) Hydrocele in adult: Code(s): N43.3 - Hydrocele, unspecified Category: Medical Plan Six-month PSA Orders: Orders Prostate Specific Antigen 6 Months N32.0 - Bladder-neck obstruction AMB Urinalysis Automated Today Z13.9 - Encounter for screening, unspecified Patient Instructions: Imaging studies, laboratory and physical exam results were discussed and reviewed in detail. No major barriers to patient understanding were identified. An opportunity to ask questions regarding the treatment plan was provided. All questions were answered. The patient expressed understanding and agreement with the above treatment plan. The patient is aware they should contact our office by phone for worsening of their current condition or the appearance of new urologic symptoms. Compliance is encouraged with any medications and followup testing that is ordered. It is a privilege to participate in the urologic care of your patient. If you have any questions or concerns regarding treatment for the above conditions, or other urologic issues, please do not hesitate to contact me. The office telephone contact is [phone]. This note is constructed using voice recognition software. While every effort has been made to ensure accuracy yard attendant errors may have been included. Yours sincerely, Dr Michele Nova MD, [facility] - Urology Providers of Expert, Compassionate Care for the Genitourinary System Coding Level of Care Code Est Pt Level 3 (22970) Diagnoses Weak urinary stream R39.12 Erectile dysfunction due to arterial insufficiency N52.01 Hydrocele in adult N43.3
== END 2024-04-01 16:01 | disposition home or self-care (01) ==
PROVIDERS: PCP Internal Medicine; Visit Provider Urology
DX: R39.12 Poor urinary stream (principal); N52.01 Erectile dysfunction due to arterial insufficiency; N43.3 Hydrocele, unspecified; Z13.9 Encounter for screening, unspecified
CPT/HCPCS: 99024

== ENCOUNTER → 2024-04-01 15:03 | Outpatient (BNVA) | payer OTHER, SELFPAY | PROVIDERS: PCP Internal Medicine; Visit Provider Urology | DX: R39.12 Poor urinary stream (principal); N52.01 Erectile dysfunction due to arterial insufficiency; N43.3 Hydrocele, unspecified | CPT/HCPCS: 81003; 99212 ==

== ENCOUNTER 2024-09-24 09:29 | Outpatient (REF) | payer MEDICARE, SELFPAY ==
--- OUTSIDE RECORDS SUMMARY | 2024-09-24 10:23 | XMS_ITS | Patient Health Record ---
Author Organization [facility] [place] mcfar[place] Address [address] [place] [address] Care Team Providers Care Filler Machine Operator Name Role Phone [place] M.Dlis Primary Care Provider Unavailable Ramila Byrd Unavailable [phone] Reason For Referral No Information Medications Medication SIG (Take, Route, Frequency, Duration) Notes Start Date End Date Status Aspirin Active Tylenol Active Plan Of Treatment Pending Test Test Name Order Date X ray : Foot, right 3V 09/09/2015 Insurance Providers Payer Name Payer Address Payer Phone Subscriber Number Group Number Insured Name Patient Relationship to Insured Coverage Start Date Coverage End Date [employer] [address] [place] [address] [phone] [id number] Tim Hurt Self - patient is the insured Medical (General) History Medical History History ICD Code Chicken pox Surgical History Surgery Date(Month/Year) shoulder surgery
[2024-09-24 11:28] LABS: Prostate Specific Antigen 0.54 ng/mL (<0.05-4.0)
== END 2024-09-24 09:30 | disposition home or self-care (01) ==
LOC: HO.LAB 09:29
PROVIDERS: PCP Internal Medicine; Visit Provider Urology
DX: N32.0 Bladder-neck obstruction (principal); Z12.5 Encounter for screening for malignant neoplasm of prostate
CPT/HCPCS: 36415; 84153

== ENCOUNTER 2024-09-30 09:52 | Outpatient (AMB) | payer MEDICARE, MEDICAID, SELFPAY ==
--- NOTE | 2024-09-30 09:57 | MHC.OFFVIS ---
Intake Visit Reasons: 6M PSA Intake Note: Patient is present for 6M/PSA Urology Medication:SILDENAFIL,TAMSULOSIN Antibiotic Allergy:NONE Blood Thinner:NONE Corn Miller Required: No Allergies lisinopril Allergy (Verified 09/30/24 09:59) Cough HPI Comments Details: Tim MCCOY is a very pleasant male. He is a patient of Dr Matthews. He is seen for the following urologic conditions. - lower urinary tract symptoms - erectile dysfunction - hydrocele - left hydrocelectomy Has remained on sildenafil and tamsulosin Good success with emptying Happy with hydrocele result Continue medication Neurogenic Bladder:? They are here for ?further management for incomplete emptying neurogenic bladder ?- better with medications ?- small stricture on cysto PSA 12/04 0.5, 04/07 1.24, 10/08 0.5 ? Urinary retention initially found?after ER visit for spontaneous retention - 08/15/17 - prior hx of weak stream, nocturia progressive - trial of finasteride but stopped due to side effects ? Current management?- alpha blockers ? Therapeutic plan?continue medications Erectile dysfunction Responsive to sildenafil PFSH Medical History HTN (hypertension) Seasonal allergies Erectile dysfunction due to arterial insufficiency Bladder outlet obstruction Weak urinary stream Surgical History Hx of detached retina repair Hx of colonoscopy Hx of bilateral cataract extraction History of total replacement of right shoulder joint (~2019) H/O shoulder replacement Social History Household Members: Other Household Members Other:: son Housing: House Are you a primary early breastfeeding care specialist to a significant other at home: No Do you presently have visiting nurse or other home services: No 75 years or older and lives alone: No Patient Tobacco Use Status: Former Tobacco user Tobacco use type: Cigarette e-Cigarette/Vaping Use: Never Used Review of Systems Const Denies chills and Denies fever(s) Card Reports no additional complaints and Denies syncope Resp Denies cough GI Denies abdominal pain and Denies heartburn Reports as per HPI and Denies change in libido Neuro Denies syncope Psych Denies change in libido Endo Denies change in libido Physical Exam Const General: cooperative, healthy appearing, comfortable and no acute distress Orientation/consciousness: patient oriented x3 HEENT Face and sinus: Yes normal facial exam Mouth: moist mucous membranes Neck Neck: Yes normal visual inspection, Yes full ROM and Yes trachea midline Chest Chest palpation & inspection: normal inspection of the chest Resp Effort & Inspection: normal respiratory effort, able to speak in complete sentences and no respiratory distress GI Inspection: Yes normal to inspection Back/Spine/Pelvis Cervical Spine: normal cervical lordosis Thoracic/Lumbar Spine: thoracic and lumbar spine normal to inspection Skin General skin exam: no rashes or lesions noted Neuro General: patient oriented x3, gait normal, tone normal and moves all extremities Extrem General: Yes normal to inspection and Yes capillary refill normal Assessment & Plan Assessment & Plan (1) Weak urinary stream: Code(s): R39.12 - Poor urinary stream Category: Medical (2) Bladder outlet obstruction: Code(s): N32.0 - Bladder-neck obstruction Category: Medical (3) Erectile dysfunction due to arterial insufficiency: Code(s): N52.01 - Erectile dysfunction due to arterial insufficiency Category: Medical Plan Twelve month follow-up PSA/PVR Medications: Refilled tamsulosin 0.4 mg PO BEDTIME 90 days 90 caps 3RF N13.8 - Other obstructive and reflux uropathy, N40.1 - Benign prostatic hyperplasia with lower urinary tract symptoms sildenafil administer 60 minutes before intended activity 100 mg PO ONCE 30 days PRN 30 tabs 1RF sexual activity N52.01 - Erectile dysfunction due to arterial insufficiency Patient Instructions: This note is constructed using voice recognition software. While every effort has been made to ensure accuracy vice president compliance errors may have been included. Imaging studies, laboratory and physical exam results were discussed and reviewed in detail. No major barriers to patient understanding were identified. An opportunity to ask questions regarding the treatment plan was provided. All questions were answered. The patient expressed understanding and agreement with the above treatment plan. The patient is aware they should contact our office by phone for worsening of their current condition or the appearance of new urologic symptoms. Compliance is encouraged with any medications and followup testing that is ordered. It is a privilege to participate in the urologic care of your patient. If you have any questions or concerns regarding treatment for the above conditions, or other urologic issues, please do not hesitate to contact me. The office telephone contact is [phone]. Sincerely, Dr Michele Nova MD, [facility] - Urology Compassionate Specialist Care for the Genitourinary System Coding Level of Care Code Est Pt Level 3 (68774) Complex EM visit Add On G2211 Diagnoses Weak urinary stream R39.12 Bladder outlet obstruction N32.0 Erectile dysfunction due to arterial insufficiency N52.01
--- OUTSIDE RECORDS SUMMARY | 2024-09-30 11:03 | XMS_ITS | Patient Health Record ---
Author Organization [facility] [place] mcfar[place] Address [address] [place] [address] Care Team Providers Care Gang Supervisor Name Role Phone [place] M.Dlis Primary Care Provider Unavailable Ramila Byrd Unavailable [phone] Reason For Referral No Information Medications Medication [...] End Date [employer] [address] [place] [address] [phone] [id number] Tim Hurt Self - patient is the insured Medical (General) History Medical History History ICD Code Chicken pox Surgical History Surgery Date(Month/Year) shoulder surgery
== END 2024-09-30 10:13 | disposition home or self-care (01) ==
PROVIDERS: PCP Internal Medicine; Visit Provider Urology
DX: R39.12 Poor urinary stream (principal); N32.0 Bladder-neck obstruction; N52.01 Erectile dysfunction due to arterial insufficiency
CPT/HCPCS: 99213; G2211

== ENCOUNTER → 2024-09-30 09:52 | Outpatient (BNVA) | payer MEDICARE, OTHER, SELFPAY | PROVIDERS: PCP Internal Medicine; Visit Provider Urology | DX: R39.12 Poor urinary stream (principal); N32.0 Bladder-neck obstruction; N52.01 Erectile dysfunction due to arterial insufficiency | CPT/HCPCS: 99212 ==